=== PATIENT | male | born 1950 | race Caucasian/White ===

== ENCOUNTER 2017-11-24 11:15 | Outpatient (RCR) | payer MEDICARE, SELFPAY ==
--- NOTE | 2017-11-15 10:11 | PT.OIE ---
Current Diagnoses Pain in right knee (11/14/17) Stiffness of right knee, not elsewhere classified (11/14/17) Muscle weakness (generalized) (11/14/17) Pain in left foot (11/14/17) Past Medical History (Last Updated 11/15/17 @ 09:53 by Shazia Steiner, PT) Arthritis (Acute) Provider Visit Care Team Role Provider Type Irma Curran PA-C Attending Provider Advanced Migratory Worker Family Provider Primary Care Provider Specialty: Medical Address: [address] [place] [address], [facility] Email: [email or web address] Physical Therapy Initial Evaluation PT-OP-A Visit Information Start: 11/13/17 17:11 Freq: Status: Active Protocol: Document 11/14/17 10:36 LRN (Rec: 11/14/17 11:37 LRN [id number]) Out-Patient Physical Therapy Visit Information Visit Information Visit Type Initial Evaluation Visit Start Time 10:36 Visit Stop Time 11:24 Total Visit Minutes 48 Visit Number 1 Number of REGISTERED NURSE OBSTETRICS Visits 0 Evaluation Information Evaluation Date 11/14/17 PT-OP-B Current Condition Start: 11/13/17 17:11 Freq: Status: Active Protocol: Document 11/14/17 10:36 LRN (Rec: 11/14/17 11:37 LRN [id number]) Current Condition History of Current Condition History of Current Condition 1.5 months ago he was stretching into R knee ext and heard pop with pain, he denies having any bruising. The next day he couldn't put weight on the legs and had to use a cane for 2 weeks. He can now straighten the R knee now and swelling has gone down . No tests have been taken. Now the L foot has started hurting due to his limping. He has had previous physical therapy for a fx in the L foot ~ 1yr ago. He states his L foot around the lateral side of the heel and ankle. His gait is slightly limited on both LE's. Prior Treatments and Tests None Treatment Goals Patient/Caregiver Goals Pt goal is to be able to bike and exercise and to be painfree in the R knee and L foot. Walk without pain in the L foot. Prior Functional Status Baseline Function- ADL's Independent Baseline Function- Mobility Independent Baseline Function- Gait Gait without an assistive device and normal gait. 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 Baseline Function- Recreation/Hobbies Walking and bicycle riding. Current Functional Impairments (Reported) Functional Limitations- Mobility/Gait Antalgic gait. Functional Limitations- Work/School Has been unable to do volunteer work. Functional Limitations- Recreation/ Unable to walk or bicycle for Hobbies exercise. Personal Factors Other Personal Factors That May Effect Lives alone. Volunteers at Therapy[employer] at [facility], at [employer] for maintenance, and at the [employer] for garden work. Helps with errands for ex-boss. PT-OP-C Subjective Start: 11/13/17 17:11 Freq: Status: Active Protocol: Document 11/14/17 10:36 LRN (Rec: 11/15/17 09:30 LRN [id number]) Patient Questionnaires Lower Extremity Functional Scale LEFS Score 53 LEFS Impairment 20 to 39% Impaired (Score 48- 62) OP-PT Pain Assessment Pain Assessment Grid Paper Pain Assessment Grid Completed Yes Location Left Lateral Foot Pain Location Details 5/10: Lateral border of calcaneus inferior & slightly procurement services manager to the ankle. Scale Used Numeric (1 - 10) Right Lateral Knee Pain Location Details Lateral superior patellar facet Pain Duration Pain with palpation Right Medial Knee Pain Location Details 4/10 at Medial Quadriceps Scale Used Numeric (1 - 10) Description Aching Frequency Constant PT-OP-G Mobility & Gait Start: 11/13/17 17:11 Freq: Status: Active Protocol: Document 11/14/17 10:36 LRN (Rec: 11/14/17 11:37 LRN [id number]) OP Gait Assessment Gait Gait Assistance Required: Independent Gait Deviations General Gait Pattern Antalgic Comments Gait Comments Antalgic bilaterally. Longer step with R leg. Limps more off of L foot. Stairs leads going down with RLE. PT-OP-J Posture/Palpation/Skin Start: 11/13/17 17:11 Freq: Status: Active Protocol: Document 11/14/17 10:36 LRN (Rec: 11/15/17 09:30 LRN [id number]) Palpation Assessment Location Three Palpation Location L calcaneus lateral border Palpation Findings Tenderness Two Palpation Location R superolateral patellar facet Palpation Findings Tenderness One Palpation Location R medial quadriceps Palpation Findings Edema Tenderness PT-OP-K Range of Motion Start: 11/13/17 17:11 Freq: Status: Active Protocol: Document 11/14/17 10:36 LRN (Rec: 11/15/17 09:30 LRN [id number]) Knee Goniometric Range of Motion Knee Measured in Degrees Left Flexion Active (degrees) 140 Extension Active (degrees) 0 Right Patient Position Supine Flexion Active (degrees) 130 Extension Active (degrees) 0 PT-OP-M Strength Start: 11/13/17 17:11 Freq: Status: Active Protocol: Document 11/14/17 10:36 LRN (Rec: 11/15/17 09:30 LRN [id number]) Knee Strength Knee Manual Muscle Testing Left Flexion (S2) 5 Normal Extension (L3) 5 Normal Right Flexion (S2) 4 Good Extension (L3) 5 Normal Ankle/Foot Strength Ankle and Foot Manual Muscle Testing Right Comments WNL for all motions. Left Comments WNL for all motions. PT-OP-Q Treatments Start: 11/13/17 17:11 Freq: Status: Active Protocol: Document 11/14/17 10:36 LRN (Rec: 11/15/17 09:30 LRN [id number]) Self-Care/Home Management Treatment Education Patient Education Home Exercise Program Activities Self-Care/Home Management Activities Quad strengthening: Isometrics and SAQ (sit and supine. Active knee flexion: sit and supine. Handout issued. PT-OP-R Modalities Start: 11/13/17 17:11 Freq: Status: Active Protocol: Document 11/14/17 10:36 LRN (Rec: 11/15/17 09:30 LRN [id number]) Hot Pack/Cold Pack Treatment Cold Pack Location R knee, L heel/foot. Treatment Duration (minutes) 10 Patient Tolerance Good PT-OP-T Assessment and Plan Start: 11/13/17 17:11 Freq: Status: Active Protocol: Document 11/14/17 10:36 LRN (Rec: 11/14/17 11:37 LRN [id number]) Physical Therapy Assessment Evaluation Complexity Number of Personal Factors/Comorbidities 3 or More Number of Body Systems Impaired 4 or More Clinical Presentation at Evaluation Evolving Impairments Impairments Activity Tolerance Gait Pain ROM Strength Other Concerns Age Related Concerns Age 65+ Arthritis Lives alone Barriers to Rehabilitation Age 65+ Arthritis Goals Three Impairment Decreased R knee mobility Pastry Decorator Goal (LTG) Normalize R knee AROM for pt to tolerate return to bicycling for exercise. LTG Duration 01/15/18 Two Impairment Pain of R knee and L foot Short Term Goal (STG) Pt will be able to decrease pain with gait using an assistive device as needed to normalize gait pattern on the L LE. STG Duration 11/29/17 Shelter Goal (LTG) Decrease pain to allow pt to tolerate walking for exercise without use of an assistive device. LTG Duration 01/15/18 One Impairment Lacks appropriate self care/ HEP. Shelter Goal (LTG) Pt will be independent with a HEP LTG Duration 01/15/18 Assessment Summary Assessment Pt presents with signs of R Quadriceps weakness and R lateral patellar facet joint inflammation with pain limiting the pt's ability to exercise and participate in volunteer work. He also presents with L lateral foot pain from overuse due to an antalgic gait from his R sided knee pain. Inflammation and pain from persists due to the gait deviation. Physical Therapy Plan Frequency and Duration Frequency of Treatment 2x/Week Duration of Treatment 2 months Plan of Care Start Date 11/14/17 Plan of Care End Date 01/15/18 Therapeutic Interventions Therapeutic Interventions Aquatic Therapy Balance Training Coordination Training Gait Training Home Exercise Program Joint Mobilizations Manual Therapy Neuromuscular Re-education Patient/Caregiver Education Self-Care/Home Management Soft Tissue Mobilization Taping Therapeutic Exercises Modalities Cold Pack/Ice Massage Hot Packs Iontophoresis Ultrasound Other Therapeutic Interventions Iontophoresis with 4mg/mL Dexamethasone. Next Visit Focus/Plan Next Note Type Treatment Note Next Visit Plan Review HEP, Start CKC strengthening of R knee, possible K-tape to the L ankle /foot, end with US to the R Medial Quad and L lateral foot .
--- NOTE | 2017-11-16 15:04 | PT.OTN ---
Current Diagnoses Pain in right knee (11/16/17) Physical Therapy Treatment Note PT-OP-A Visit Information Start: 11/13/17 17:11 Freq: Status: Active Protocol: Document 11/16/17 08:15 LRN (Rec: 11/16/17 09:00 LRN [id number]) Out-Patient Physical Therapy Visit Information Visit Information Visit Type Treatment Note Visit Start Time 08:15 Visit Stop Time 09:05 Total Visit Minutes 50 Visit Number 2 Number of ROTARY CUTTER FEEDER Visits 0 Evaluation Information Evaluation Date 11/14/17 PT-OP-B Current Condition Start: 11/13/17 17:11 Freq: Status: Active Protocol: Document 11/14/17 10:36 LRN (Rec: 11/14/17 11:37 LRN [id number]) Current Condition History of Current Condition History of Current Condition 1.5 months ago he was stretching into R knee ext and heard pop with pain, he denies having any bruising. The next day he couldn't put weight on the legs and had to use a cane for 2 weeks. He can now straighten the R knee now and swelling has gone down . No tests have been taken. Now the L foot has started hurting due to his limping. He has had previous physical therapy for a fx in the L foot ~ 1yr ago. He states his L foot around the lateral side of the heel and ankle. His gait is slightly limited on both LE's. Prior Treatments and Tests None Treatment Goals Patient/Caregiver Goals Pt goal is to be able to bike and exercise and to be painfree in the R knee and L foot. Walk without pain in the L foot. Prior Functional Status Baseline Function- ADL's Independent Baseline Function- Mobility Independent Baseline Function- Gait Gait without an assistive device and normal gait. 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 Baseline Function- Recreation/Hobbies Walking and bicycle riding. Current Functional Impairments (Reported) Functional Limitations- Mobility/Gait Antalgic gait. Functional Limitations- Work/School Has been unable to do volunteer work. Functional Limitations- Recreation/ Unable to walk or bicycle for Hobbies exercise. Personal Factors Other Personal Factors That May Effect Lives alone. 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 Helps with errands for ex-boss. PT-OP-C Subjective Start: 11/13/17 17:11 Freq: Status: Active Protocol: Document 11/16/17 08:15 LRN (Rec: 11/16/17 09:00 LRN [id number]) OP-PT Subjective Patient Comments Patient Comments Pain was above the knee while doing the ex's. Evening aches the most. PT-OP-G Mobility & Gait Start: 11/13/17 17:11 Freq: Status: Active Protocol: Document 11/14/17 10:36 LRN (Rec: 11/14/17 11:37 LRN [id number]) OP Gait Assessment Gait Gait Assistance Required: Independent Gait Deviations General Gait Pattern Antalgic Comments Gait Comments Antalgic bilaterally. Longer step with R leg. Limps more off of L foot. Stairs leads going down with RLE. PT-OP-J Posture/Palpation/Skin Start: 11/13/17 17:11 Freq: Status: Active Protocol: Document 11/14/17 10:36 LRN (Rec: 11/15/17 09:30 LRN [id number]) Palpation Assessment Location Three Palpation Location L calcaneus lateral border Palpation Findings Tenderness Two Palpation Location R superolateral patellar facet Palpation Findings Tenderness One Palpation Location R medial quadriceps Palpation Findings Edema Tenderness PT-OP-K Range of Motion Start: 11/13/17 17:11 Freq: Status: Active Protocol: Document 11/16/17 08:15 LRN (Rec: 11/16/17 09:00 LRN [id number]) Knee Goniometric Range of Motion Knee Measured in Degrees Left Patient Position Supine Flexion Active (degrees) 140 Right Patient Position Supine Flexion Active (degrees) 145 PT-OP-M Strength Start: 11/13/17 17:11 Freq: Status: Active Protocol: Document 11/14/17 10:36 LRN (Rec: 11/15/17 09:30 LRN [id number]) Knee Strength Knee Manual Muscle Testing Left Flexion (S2) 5 Normal Extension (L3) 5 Normal Right Flexion (S2) 4 Good Extension (L3) 5 Normal Ankle/Foot Strength Ankle and Foot Manual Muscle Testing Right Comments WNL for all motions. Left Comments WNL for all motions. PT-OP-Q Treatments Start: 11/13/17 17:11 Freq: Status: Active Protocol: Document 11/16/17 08:15 LRN (Rec: 11/16/17 09:00 LRN [id number]) Therapeutic Exercises Supine Exercises 3 Supine Exercise Name Ankle IV/EV, PF/DF Side left Reps/Minutes 10 each 2 Supine Exercise Name SLR Side right Resistance 2# 1 Supine Exercise Name CKC R knee ext Resistance Lev 2 T-Band Reps/Minutes 15 PT-OP-R Modalities Start: 11/13/17 17:11 Freq: Status: Active Protocol: Document 11/16/17 08:15 LRN (Rec: 11/16/17 09:00 LRN [id number]) Hot Pack/Cold Pack Treatment Cold Pack Location R knee, L heel/foot. Treatment Duration (minutes) 10 Patient Tolerance Good Ultrasound Therapy Treatment Right Upper Medial Knee Treatment Duration (minutes) 8 Patient Position Supine Mode Setting Pulsed Duty Cycle 50% Intensity Setting (w/cm2) 1.0 Comments R Medial Quad PT-OP-T Assessment and Plan Start: 11/13/17 17:11 Freq: Status: Active Protocol: Document 11/16/17 08:15 LRN (Rec: 11/16/17 09:00 LRN [id number]) Physical Therapy Assessment Impairments Impairments Activity Tolerance Gait Pain ROM Strength Other Concerns Age Related Concerns Age 65+ Arthritis Lives alone Barriers to Rehabilitation Age 65+ Arthritis Goals Three Impairment Decreased R knee mobility Intermediate Goal (LTG) Normalize R knee AROM for pt to tolerate return to bicycling for exercise. LTG Duration 01/15/18 Two Impairment Pain of R knee and L foot Short Term Goal (STG) Pt will be able to decrease pain with gait using an assistive device as needed to normalize gait pattern on the L LE. STG Duration 11/29/17 Grain Shipper Goal (LTG) Decrease pain to allow pt to tolerate walking for exercise without use of an assistive device. LTG Duration 01/15/18 One Impairment Lacks appropriate self care/ HEP. Grain Shipper Goal (LTG) Pt will be independent with a HEP LTG Duration 01/15/18 Assessment Summary Assessment Full R knee AROM after US. Physical Therapy Plan Frequency and Duration Frequency of Treatment 2x/Week Duration of Treatment 2 months Plan of Care Start Date 11/14/17 Plan of Care End Date 01/15/18 Next Visit Focus/Plan Next Visit Plan ROM on Bike f/b A/PROM, Us to R knee and L lateral foot. Add open chain knee strengthening. K-tape to R knee/L foot.
--- NOTE | 2017-11-21 14:51 | PT.OTN ---
Current Diagnoses Pain in right knee (11/21/17) Physical Therapy Treatment Note PT-OP-A Visit Information Start: 11/13/17 17:11 Freq: Status: Active Protocol: Document 11/21/17 12:47 LRN (Rec: 11/21/17 13:33 LRN [id number]) Out-Patient Physical Therapy Visit Information Visit Information Visit Type Treatment Note Visit Start Time 12:47 Visit Stop Time 13:40 Total Visit Minutes 53 Visit Number 3 Number of FAIRGROUND OPERATOR Visits 0 Evaluation Information Evaluation Date 11/14/17 PT-OP-B Current Condition Start: 11/13/17 17:11 Freq: Status: Active Protocol: Document 11/14/17 10:36 LRN (Rec: 11/14/17 11:37 LRN [id number]) Current Condition History of Current Condition History of Current Condition 1.5 months ago he was stretching into R knee ext and heard pop with pain, he denies having any bruising. The next day he couldn't put weight on the legs and had to use a cane for 2 weeks. He can now straighten the R knee now and swelling has gone down . No tests have been taken. Now the L foot has started hurting due to his limping. He has had previous physical therapy for a fx in the L foot ~ 1yr ago. He states his L foot around the lateral side of the heel and ankle. His gait is slightly limited on both LE's. Prior Treatments and Tests None Treatment Goals Patient/Caregiver Goals Pt goal is to be able to bike and exercise and to be painfree in the R knee and L foot. Walk without pain in the L foot. Prior Functional Status Baseline Function- ADL's Independent Baseline Function- Mobility Independent Baseline Function- Gait Gait without an assistive device and normal gait. 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 Baseline Function- Recreation/Hobbies Walking and bicycle riding. Current Functional Impairments (Reported) Functional Limitations- Mobility/Gait Antalgic gait. Functional Limitations- Work/School Has been unable to do volunteer work. Functional Limitations- Recreation/ Unable to walk or bicycle for Hobbies exercise. Personal Factors Other Personal Factors That May Effect Lives alone. 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 Helps with errands for ex-boss. PT-OP-C Subjective Start: 11/13/17 17:11 Freq: Status: Active Protocol: Document 11/21/17 12:47 LRN (Rec: 11/21/17 13:33 LRN [id number]) OP-PT Subjective Patient Comments Patient Comments Ache in the R knee. Sometimes doesn't feel anything in the L foot. Walking without pain for 5 days. No problems with stairs except cautious. 99% NL R knee, 85% NL L foot. PT-OP-G Mobility & Gait Start: 11/13/17 17:11 Freq: Status: Active Protocol: Document 11/14/17 10:36 LRN (Rec: 11/14/17 11:37 LRN [id number]) OP Gait Assessment Gait Gait Assistance Required: Independent Gait Deviations General Gait Pattern Antalgic Comments Gait Comments Antalgic bilaterally. Longer step with R leg. Limps more off of L foot. Stairs leads going down with RLE. PT-OP-J Posture/Palpation/Skin Start: 11/13/17 17:11 Freq: Status: Active Protocol: Document 11/14/17 10:36 LRN (Rec: 11/15/17 09:30 LRN [id number]) Palpation Assessment Location Three Palpation Location L calcaneus lateral border Palpation Findings Tenderness Two Palpation Location R superolateral patellar facet Palpation Findings Tenderness One Palpation Location R medial quadriceps Palpation Findings Edema Tenderness PT-OP-K Range of Motion Start: 11/13/17 17:11 Freq: Status: Active Protocol: Document 11/21/17 12:47 LRN (Rec: 11/21/17 13:33 LRN [id number]) Knee Goniometric Range of Motion Knee Measured in Degrees Left Patient Position Supine Flexion Active (degrees) 145 Extension Active (degrees) 0 Right Knee ROM WFL Yes Patient Position Supine Flexion Active (degrees) 145 Extension Active (degrees) 0 Ankle and Foot Goniometric Range of Motion Ankle and Foot ROM Limitations ROM Limitations Soft Tissue Tightness Pain Comments L foot ankle PF and IV stiff. PT-OP-M Strength Start: 11/13/17 17:11 Freq: Status: Active Protocol: Document 11/14/17 10:36 LRN (Rec: 11/15/17 09:30 LRN [id number]) Knee Strength Knee Manual Muscle Testing Left Flexion (S2) 5 Normal Extension (L3) 5 Normal Right Flexion (S2) 4 Good Extension (L3) 5 Normal Ankle/Foot Strength Ankle and Foot Manual Muscle Testing Right Comments WNL for all motions. Left Comments WNL for all motions. PT-OP-Q Treatments Start: 11/13/17 17:11 Freq: Status: Active Protocol: Document 11/21/17 12:47 LRN (Rec: 11/21/17 13:33 LRN [id number]) Cardio Equipment Bicycle (Upright) Duration (Minutes) 8 Resistance Lev 4 Seat Position 3 Therapeutic Exercises Supine Exercises 3 Supine Exercise Name Ankle IV/EV, PF/DF Side left Resistance Lev 2 Equipment Used T-Band Reps/Minutes 15x2 each Standing Exercises 3 Standing Exercise Name Descending step leading Left Reps/Minutes 3' 2 Standing Exercise Name Step ups Side bilateral Reps/Minutes 15x2 1 Standing Exercise Name Sit to Stand Reps/Minutes 10x3 Manual Therapy Treatment Soft Tissue Mobilization 1 Body Location L ankle Mobilization Type Sustained Pressure Body Position Supine Comments Stretch PF/IV Self-Care/Home Management Treatment Activities Self-Care/Home Management Activities I/S pt to do step ups bilaterally, and L step downs, using T-Band for ankle ex's. PT-OP-R Modalities Start: 11/13/17 17:11 Freq: Status: Active Protocol: Document 11/21/17 12:47 LRN (Rec: 11/21/17 13:33 LRN [id number]) Hot Pack/Cold Pack Treatment Cold Pack Location R knee, L heel/foot. Treatment Duration (minutes) 10 Patient Tolerance Good PT-OP-T Assessment and Plan Start: 11/13/17 17:11 Freq: Status: Active Protocol: Document 11/21/17 12:47 LRN (Rec: 11/21/17 13:33 LRN [id number]) Physical Therapy Assessment Goals Three Impairment Decreased R knee mobility Envelope Folding Machine Operator Goal (LTG) Normalize R knee AROM for pt to tolerate return to bicycling for exercise. LTG Duration 11/21/17: GOAL MET. Two Impairment Pain of R knee and L foot Short Term Goal (STG) Pt will be able to decrease pain with gait using an assistive device as needed to normalize gait pattern on the L LE. STG Duration 11/21/17: GOAL MET. Care Home Goal (LTG) Decrease pain to allow pt to tolerate walking without pain. LTG Duration 01/15/18 One Impairment Lacks appropriate self care/ HEP. Care Home Goal (LTG) Pt will be independent with a HEP LTG Duration 01/15/18 Progress Towards Goals Progress Comments Goal #3 Met. STG #2 Met and LTG #3 modified. Assessment Summary Assessment Full R knee AROM without pain. Walking with L foot discomfort on stance and toe off phase. Not able to palpate tenderness at the knee or ankle; therefore held ultrasound. Physical Therapy Plan Frequency and Duration Frequency of Treatment 2x/Week Duration of Treatment 1 visit Plan of Care Start Date 11/14/17 Plan of Care End Date 01/15/18 Next Visit Focus/Plan Next Note Type Discharge Summary Next Visit Plan Reassess LEFS & Pain Grid, Gait. Issue HEP as needed. DC if pt ready.
--- NOTE | 2017-11-24 15:37 | PT.OTN ---
Current Diagnoses Pain in right knee (11/24/17) Physical Therapy Treatment Note PT-OP-A Visit Information Start: 11/13/17 17:11 Freq: Status: Active Protocol: Document 11/24/17 11:16 LRN (Rec: 11/24/17 12:50 LRN [id number]) Out-Patient Physical Therapy Visit Information Visit Information Visit Type Treatment Note Visit Start Time 11:16 Visit Stop Time 12:06 Total Visit Minutes 50 Visit Number 4 Number of BRAZER CRAWLER TORCH Visits 0 Evaluation Information Evaluation Date 11/14/17 PT-OP-B Current Condition Start: 11/13/17 17:11 Freq: Status: Active Protocol: Document 11/14/17 10:36 LRN (Rec: 11/14/17 11:37 LRN [id number]) Current Condition History of Current Condition History of Current Condition 1.5 months ago he was stretching into R knee ext and heard pop with pain, he denies having any bruising. The next day he couldn't put weight on the legs and had to use a cane for 2 weeks. He can now straighten the R knee now and swelling has gone down . No tests have been taken. Now the L foot has started hurting due to his limping. He has had previous physical therapy for a fx in the L foot ~ 1yr ago. He states his L foot around the lateral side of the heel and ankle. His gait is slightly limited on both LE's. Prior Treatments and Tests None Treatment Goals Patient/Caregiver Goals Pt goal is to be able to bike and exercise and to be painfree in the R knee and L foot. Walk without pain in the L foot. Prior Functional Status Baseline Function- ADL's Independent Baseline Function- Mobility Independent Baseline Function- Gait Gait without an assistive device and normal gait. 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 Baseline Function- Recreation/Hobbies Walking and bicycle riding. Current Functional Impairments (Reported) Functional Limitations- Mobility/Gait Antalgic gait. Functional Limitations- Work/School Has been unable to do volunteer work. Functional Limitations- Recreation/ Unable to walk or bicycle for Hobbies exercise. Personal Factors Other Personal Factors That May Effect Lives alone. 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 Helps with errands for ex-boss. PT-OP-C Subjective Start: 11/13/17 17:11 Freq: Status: Active Protocol: Document 11/24/17 11:16 LRN (Rec: 11/24/17 12:50 LRN [id number]) OP-PT Subjective Patient Comments Patient Comments No R knee pain. Only slight L ankle with deep palpation. R knee feels a little weak. Patient Questionnaires Lower Extremity Functional Scale LEFS Score 70 LEFS Impairment 1 to 19% Impaired (Score 63-79 ) OP-PT Pain Assessment Pain Assessment Grid Paper Pain Assessment Grid Completed Yes Location Left Lateral Foot Pain Location Details Inferior to lateral ankle joint Intensity 2 Scale Used Numeric (1 - 10) Description- Other Only aches during a lot of stair ambulation. Ache stops when done. Right Lateral Knee Pain Location Details Lateral superior patellar facet Intensity 0 Description- Other Weakness, no pain. Right Medial Knee Pain Location Details Medial Quadriceps Intensity 0 Description- Other Weakness, no pain. PT-OP-G Mobility & Gait Start: 11/13/17 17:11 Freq: Status: Active Protocol: Document 11/24/17 11:16 LRN (Rec: 11/24/17 12:50 LRN [id number]) OP Gait Assessment Gait Deviations General Gait Pattern Within Normal Limits Comments Gait Comments Normal gait on level and stairs. PT-OP-J Posture/Palpation/Skin Start: 11/13/17 17:11 Freq: Status: Active Protocol: Document 11/24/17 11:16 LRN (Rec: 11/24/17 12:50 LRN [id number]) Posture Evaluation Comments Posture Comments Normal. Palpation Assessment Location Three Palpation Location L calcaneus lateral border Palpation Details No tenderness. Area of tenderness with activity or deep pressure is inferior to the lateral ankle joint. Two Palpation Location R superolateral patellar facet Palpation Details No tenderness One Palpation Location R medial quadriceps Palpation Details No tenderness PT-OP-K Range of Motion Start: 11/13/17 17:11 Freq: Status: Active Protocol: Document 11/24/17 11:16 LRN (Rec: 11/24/17 12:50 LRN [id number]) Knee Goniometric Range of Motion Knee Measured in Degrees Left Knee ROM WFL Yes Right Knee ROM WFL Yes Ankle and Foot Goniometric Range of Motion Ankle and Foot ROM Limitations Comments L foot ankle PF and IV stiff. PT-OP-M Strength Start: 11/13/17 17:11 Freq: Status: Active Protocol: Document 11/24/17 11:16 LRN (Rec: 11/24/17 12:50 LRN [id number]) Knee Strength Knee Manual Muscle Testing Right Flexion (S2) 5 Normal Extension (L3) 5 Normal Ankle/Foot Strength Ankle and Foot Manual Muscle Testing Right Comments Normal strength PT-OP-Q Treatments Start: 11/13/17 17:11 Freq: Status: Active Protocol: Document 11/24/17 11:16 LRN (Rec: 11/24/17 12:50 LRN [id number]) Cardio Equipment Bicycle (Upright) Duration (Minutes) 8 Resistance Lev 4 Seat Position 3 Gym Equipment Shuttle Recovery Bilateral Heel Raises Resistance 50# Shuttle Recovery Platform Stable Reps/Time 10x3 Bilateral Squats Resistance 75# Shuttle Recovery Platform Stable Reps/Time 10x3 Unilateral Squats Resistance 50# Shuttle Recovery Platform Stable Reps/Time 15x1 Therapeutic Exercises Supine Exercises 4 Supine Exercise Name R knee AROM/ARROM Comments ROM & strength check 3 Supine Exercise Name Ankle IV/EV, PF/DF Side left Comments ROM and strength check Standing Exercises 3 Standing Exercise Name Descending step leading Left Comments Normal gait. Self-Care/Home Management Treatment Education Patient Education Home Exercise Program Activities Self-Care/Home Management Activities Reiviewed and updated pt's HEP with written instructions given on existing HEP. PT-OP-R Modalities Start: 11/13/17 17:11 Freq: Status: Active Protocol: Document 11/24/17 11:16 LRN (Rec: 11/24/17 12:50 LRN [id number]) Hot Pack/Cold Pack Treatment Cold Pack Location R knee, L heel/foot. Treatment Duration (minutes) 10 Patient Tolerance Good Ultrasound Therapy Treatment Left Lateral Ankle Treatment Duration (minutes) 8 Patient Position Supine Coupling Medium Ultrasound Gel Applicator Size (cm2) 2 Frequency Setting (mHz) 1 Mode Setting Pulsed Duty Cycle 50% Intensity Setting (w/cm2) 1.0 Comments Around anterior, inferior, posterior L distal fibula at the lateral malleolus. PT-OP-T Assessment and Plan Start: 11/13/17 17:11 Freq: Status: Active Protocol: Document 11/24/17 11:16 LRN (Rec: 11/24/17 12:50 LRN [id number]) Physical Therapy Assessment Impairments Impairments Strength Goals Three Impairment Decreased R knee mobility Promotions Director Goal (LTG) Normalize R knee AROM for pt to tolerate return to bicycling for exercise. LTG Duration 11/21/17: GOAL MET. Two Impairment Pain of R knee and L foot Short Term Goal (STG) Pt will be able to decrease pain with gait using an assistive device as needed to normalize gait pattern on the L LE. STG Duration 11/21/17: GOAL MET. Promotions Director Goal (LTG) Decrease pain to allow pt to tolerate walking without pain. LTG Duration 11/24/17: GOAL MET. One Impairment Lacks appropriate self care/ HEP. Promotions Director Goal (LTG) Pt will be independent with a HEP LTG Duration 11/24/17: GOAL MET. Progress Towards Goals Progress Comments Goals Met. Assessment Summary Assessment Full R knee AROM without pain. No R knee or L foot pain with gait. Mild ache in L foot with 2 flights of stairs. Physical Therapy Plan Next Visit Focus/Plan Next Visit Plan DC to independent HEP.
== END 2017-12-06 08:49 ==
LOC: PHYS 11:15
PROVIDERS: Family Provider Physician Assistant; PCP Physician Assistant; Visit Provider Physician Assistant
DX: M25.561 Pain in right knee (principal)
CPT/HCPCS: 97010; 97035; 97110; 97161; 97535

== ENCOUNTER → 2019-11-12 12:52 | Outpatient (CLI) | payer MEDICARE, SELFPAY ==
--- NOTE | 2019-11-12 12:55 | DI.RAD.S_ITS ---
PROCEDURE: XR FINGER LT MIN 2V INDICATIONS: l thumb pain TECHNIQUE: AP hand, 2 views of the thumb were obtained. COMPARISON: None. FINDINGS: Bones: No fractures or dislocations. No suspicious bony lesions. Yikx-vy-eeyksgal degenerative changes are present involving the basal joints of the thumb. Soft tissues: No suspicious soft tissue calcifications. IMPRESSION: [id number] degenerative changes involving the basal joint of the thumb. No fractures. Dictated by: Julio Chin M.D. on 11/12/2019 at 12:50 Approved by: Julio Chin M.D. on 11/12/2019 at 12:53
== END ==
PROVIDERS: Family Provider Physician Assistant; PCP Physician Assistant; Referring Provider Physician Assistant; Visit Provider Physician Assistant
DX: M79.645 Pain in left finger(s) (principal)
CPT/HCPCS: 73140

== ENCOUNTER 2019-11-13 10:46 | Emergency (ER) | payer MEDICARE, SELFPAY | END 2019-11-13 10:58 | disposition left against medical advice (07) | PROVIDERS: Emergency Provider Emergency Medicine; Family Provider Physician Assistant; PCP Physician Assistant ==

== ENCOUNTER → 2019-11-13 16:02 | Outpatient (CLI) | payer MEDICARE, SELFPAY ==
--- NOTE | 2019-11-13 16:05 | DI.MRI.S_ITS ---
PROCEDURE: MR HAND LT WO CON INDICATIONS: left thumb injury TECHNIQUE: Noncontrast oblique coronal T1 spin echo and T2 fast spin echo with fat saturation, axial and sagittal T2 fast spin echo with fat saturation, through the thumb. COMPARISON: [facility], CR, XR FINGER LT MIN 2V, 11/12/2019, 12:50. FINDINGS: Image quality: Excellent. Bones: The bones are normally aligned, without marrow contusions or fractures. No intra-osseous lesions. First carpometacarpal joint: On sagittal images, the dorsal radial ligament and posterior oblique ligament appear intact. The intermetacarpal ligament between the 1st and 2nd metacarpal bases also appears intact. On the volar aspect, the deep and superficial layers of the anterior oblique ligament appear intact. First metacarpophalangeal joint: The proper and accessory components of the radial collateral ligament appears intact, along with overlying fibers of the abductor pollicis brevis tendon. The proper and accessory components of the ulnar collateral ligaments appear Thickened at its distal insertion suggestive of sprain/ low to moderate grade partial thickness tear. The aponeurosis of the adductor pollicis muscle also appears normal. The volar plate appears intact on sagittal images, situated between the radial and ulnar sesamoids. Thenar muscles: The superficial abductor pollicis longus muscle appears normal, with tendon inserting on the radial base of the first proximal phalanx. The opponens pollicis muscle also appears normal, inserting on the first metacarpal shaft. The flexor pollicis brevis muscle appears normal, with tendon inserting on the radial sesamoid and first proximal phalanx. The oblique and transverse heads of the adductor pollicis muscle appear normal, inserting on the ulnar sesamoid and proximal phalanx as part of the adductor aponeurosis. Flexor pollicis longus tendon: Thickening of the flexor pollicis longus tendon seen at the level of 1st MCP joint with surrounding soft tissue edema and intrasubstance fluid signal. There is suggestion of ruptured A1 peter. Extensor tendons: The extensor pollicis brevis tendon appears intact, coursing radial to the extensor pollicis longus tendon and inserting on the dorsal base of the proximal phalanx, blending with the dorsal plate of the first MCP joint. The extensor pollicis longus tendon appears intact as it inserts on the dorsal base of the distal phalanx. The sagittal band at the level of the first MCP joint appears intact. The abductor pollicis longus tendon slips appear intact at the radial aspect of the proximal phalanx, proximal to the abductor pollicis brevis tendon insertion. Miscellaneous: No ganglion cysts. IMPRESSION: 1. Suggestion of ruptured A1 peter with tendinosis and low-grade intrasubstance partial-thickness tear involving flexor pollicis longus tendon at the level of 1st MCP joint. 2. sprain/ low to moderate grade partial thickness tear involving distal ulnar collateral ligament of the 1st MTP joint. 3. No fracture or dislocation. Dictated by: Dusty Rehman M.D. on 11/13/2019 at 18:11 Approved by: Dusty Rehman M.D. on 11/13/2019 at 18:19
== END ==
PROVIDERS: Family Provider Physician Assistant; PCP Physician Assistant; Referring Provider Registered Nurse; Visit Provider Registered Nurse
DX: M79.645 Pain in left finger(s) (principal); S53.32XA Traumatic rupture of left ulnar collateral ligament, initial encounter; X58.XXXA Exposure to other specified factors, initial encounter
CPT/HCPCS: 73218

== ENCOUNTER → 2021-06-07 10:33 | Outpatient (CLI) | payer MEDICARE, SELFPAY ==
[2021-06-07 12:07] LABS: COVID19 -Nasal RAPID Negative (Negative)
== END ==
PROVIDERS: PCP Registered Nurse; Visit Provider Family Medicine Sleep Medicine
DX: Z20.822 Contact with and (suspected) exposure to COVID-19 (principal)
CPT/HCPCS: 87635; C9803

== ENCOUNTER 2021-06-08 07:36 | Day surgery (SDC) | payer MEDICARE, SELFPAY ==
[2021-06-08 09:05] VITALS: BP 137/79; PULSE 81; RESP 18; TEMP 36.5; O2SAT 99; BMI 22.4
[2021-06-08] MEDS: CATARACT EYE COMPOUND (10 DROPS/SYRINGE) 3 DROPS EYE-OP (09:05)
[2021-06-08] MEDS: PROPARACAINE 0.5% OPHTH SOL 2 DROPS EYE-OP (09:05)
--- NOTE | 2021-06-08 09:49 | P.OP.PRE_ITS ---
Pre-operative Note Interval Note History & Physical reviewed/Exam performed by Physician: Yes Changes to H&P: No Addendum Addendum Note: There are no non surgical alternatives to the patient's condition. Deteriora tion of the patient's condition is expected. Delay may result in more complex future surgery.
--- NOTE | 2021-06-08 09:50 | P.OP_ITS ---
Operative Date/Time/Diagnoses Pre-op diagnosis: Nuclear cataract right eye Procedure & Clinicians Procedure: Cataract Surgery Same procedure as scheduled: Yes Surgeon: Attila Velazquez Anesthesia Type: MAC +/- and Sedation Operative Notes Procedure in detail: Patient brought to the operating suite. Tetracaine drops placed in the right eye. Marking instrument was used to wiley the vertical and horizontal meridians. Patient was prepped and draped in sterile manner. Wire lid speculum was placed in the eye. Betadine drops were placed on the eye. This was irrigated. Lidocaine jelly was placed on the eye. A paracentesis port was created with a side-port blade. 0.1 mL 1% preservative free lidocaine was injected into the anterior chamber. The anterior chamber was deepened with viscoelastic. 2.6 mm keratome was used to create a temporal clear corneal incision. Cystotome and Utrata forceps were used to create continuous tear capsulorrhexis. Balanced salt solution was used to hydro dissect the nucleus. The phacoemulsification handpiece was inserted and the nucleus was removed using the stop and chop technique. The irrigation aspiration handpiece was inserted and the remaining cortex was removed. Anterior chamber was deepened with viscoelastic. An Hopkins [id number] intraocular lens with a power of 20.5 was injected into the capsular bag. Irrigation aspiration handpiece was inserted and the remaining viscoelastic was removed. The lens was rotated to the 180 degree meridian. Incision was hydrated with balanced salt solution and found to be leak free with pressure with Weck- Grace sponges. 0.1 mL Vigamox injected anterior chamber. 0.3 mL Kenalog 10 mg was injected subconjunctivally. Lid speculum was removed. The patient left the operating room in excellent condition. Complications: none Post-operative Condition: stable Disposition: same day surgery
[2021-06-08] MEDS: PHENYLEPHRINE/LIDOCAINE VIAL (OR) 0.2 ML EYE-OP (10:03)
[2021-06-08] MEDS: HYALURONATE SODIUM 30 MG-10 MG/ML SYRINGES 1 BOX INTRAOCULA (10:03)
[2021-06-08] MEDS: MOXIFLOXACIN INJ 4 MG/0.8 ML VIAL 0.5 MG EYE-OP (10:03)
[2021-06-08] MEDS: TRIAMCINOLONE 50 MG/5 ML VIAL INJ (10:03)
[2021-06-08] MEDS: TETRACAINE 0.5% OPHTH DROPS 4 ML 2 DROPS EYE-OP (10:04)
[2021-06-08] MEDS: LIDOCAINE 2% (GLYDO) 6 ML GEL TOP (10:04)
[2021-06-08] MEDS: BALANCED SALT IRRIG SOLN NO.2 500 ML, EPINEPHrine 1 MG IRR (10:04)
[2021-06-08 10:23] VITALS: BP 122/77; PULSE 75; RESP 16; TEMP 36.7; O2SAT 99
== END 2021-06-08 10:39 | disposition home or self-care (01) ==
PROVIDERS: PCP Registered Nurse; Referring Provider Ophthalmology; Visit Provider Ophthalmology
PROC: (CPT 66984; principal; 2021-06-08 09:45)
DX: H25.11 Age-related nuclear cataract, right eye (principal)
CPT/HCPCS: 66984; J0171; J2250; J3301; V2787

== ENCOUNTER → 2022-11-08 10:16 | Outpatient (CLI) | payer MEDICARE, SELFPAY ==
--- NOTE | 2022-11-08 10:17 | DI.RAD.S_ITS ---
PROCEDURE: XR CHEST 2V INDICATIONS: 6 mo intermittent persistent cough TECHNIQUE: 2 views of the chest were acquired. COMPARISON: None. FINDINGS: Surgical changes and devices: None. Lungs and pleura: Lungs are mildly hyperinflated and clear. No pleural effusions or pneumothorax. Mediastinum: Mediastinal contours are normal. Heart size is normal. Bones and chest wall: No suspicious bony abnormalities. Incidental note of mild midthoracic compression fracture, presumably chronic. Small left humeral neck enchondroma. Soft tissues appear unremarkable. IMPRESSION: 1. No acute cardiopulmonary disease. 2. Mild hyperinflation may indicate chronic reactive airways disease/emphysema. Dictated by: Julia Minor M.D. on 11/08/2022 at 9:44 Approved by: Julia Minor M.D. on 11/08/2022 at 9:45
== END ==
PROVIDERS: Referring Provider Student in an Organized Health Care Education/Training Program; Visit Provider Student in an Organized Health Care Education/Training Program
DX: R05.8 Other specified cough (principal)
CPT/HCPCS: 71046

== ENCOUNTER 2023-06-30 11:33 | Emergency (ER) | payer OTHER, SELFPAY ==
[2023-06-30 11:37] VITALS: BP 169/89; PULSE 76; RESP 18; TEMP 36.6; O2SAT 99; BMI 24.0
--- NOTE | 2023-06-30 11:58 | ED_ITS ---
<Statement entered by Delmer Guy MD - 06/30/23 21:40> I was available for consultation for this patient while they were in the ER but not consulted. My review of this note is my first interaction with this patient's chart. HPI - Eye Problem General Chief complaint: Eye Problems Stated complaint: rt eye problem Time Seen by Provider: 06/30/23 11:52 Source: patient Mode of arrival: Ambulatory History of Present Illness HPI Narrative: This is a 73-year-old male presents to the emergency department complaining of bilateral eye irritation. States that yesterday began as a stye which ?opened up? causing some irritation to his right eye. This morning it as spread to his left eye. States mild irritation but no significant pain. No vision changes. No pain with extraocular movement. Denies any fevers or any other concerning signs or symptoms. States that there has been some purulent drainage from bilateral eyes. Related Data Home Medications Medication Instructions Recorded Confirmed witch gordy 50 % topical pads 1 ea TP QDAY ##0 12/15/15 11/08/22 (Tucks (witch gordy)) acetaminophen 500 mg tablet 500 mg PO Q6H PRN Pain (Scale 10/02/17 11/08/22 (Tylenol Extra Strength) Score 4-6) atorvastatin 10 mg tablet 10 mg PO DAILY 10/02/17 11/08/22 latanoprost 0.005 % eye drops 1 drop EYE-BOTH DAILY 11/13/19 11/08/22 multivitamin (Daily Multi-Vitamin 1 tab PO DAILY 11/13/19 11/08/22 tablet) psyllium 1 tbsp PO DAILY 11/13/19 11/08/22 atorvastatin 20 mg tablet 20 mg PO BEDTIME 06/08/23 06/08/23 mometasone 100 mcg/actuation HFA 1 puff inhalation BID 06/08/23 06/08/23 aerosol inhaler (Asmanex HFA) Previous Rx's Medication Instructions Recorded Disabled Parking Permit ea ##1 09/29/16 benzonatate 100 mg capsule 100 mg PO TID PRN cough #30 caps 11/08/22 albuterol sulfate 90 mcg/actuation 2 puff inhalation Q6H PRN 06/12/23 aerosol inhaler shortness of breath or wheezing #6.7 grams inhalational spacing device #1 ea 06/12/23 (Flexichamber spacer) polymyxin B sulfate 10,000 1 drp EYE-BOTH Q3H 7 days #10 mL 06/30/23 unit-trimethoprim 1 mg/mL eye drops polymyxin B sulfate 10,000 1 drp EYE-BOTH Q3H 7 days #10 mL 06/30/23 unit-trimethoprim 1 mg/mL eye drops Allergies Allergy/AdvReac Type Severity Reaction Status Date / Time NSAIDS (Non-Steroidal AdvReac GI bleed Verified 06/08/23 09:07 Anti-Inflamma Review of Systems Review of Systems Narrative: GENERAL: Denies chills, fatigue, malaise, fever, sweats. HEENT: Reports eye irritation and purulent drainage bilaterally, Denies sinus pain, ear pain, sore throat, difficulty swallowing, dizziness. RESPIRATORY: Denies dyspnea, cough, wheezing, hemoptysis, sputum. CARDIOVASCULAR: Denies chest pain, palpitations, orthopnea, edema, GASTROINTESTINAL: Denies nausea, vomiting, abdominal pain, diarrhea, constipation, melena. : Denies dysuria, frequency, incontinence, hematuria, urinary retention. MUSCULOSKELETAL: denies weakness, joint pain, or bony pain SKIN: Denies rash, skin lesions, or other NEUROLOGIC: Denies weakness, headache, numbness, change in speech, confusion, seizures, incoordination. PSYCHIATRIC: No concerning psychosocial issues. 12 point review of systems is negative except for those stated above Patient History Medical History (Updated 06/30/23 @ 12:13 by Juan Carlos Ulloa PA-C) Injury of tendon of thumb Arthritis Left foot pain History of renal calculi (12/11/14) Social History household members: none Smoking Status: Never smoker alcohol intake: current Smoking Status: Never smoker alcohol intake frequency: a few times a week Substance Use Type: does not use Exam Narrative Exam Narrative: GENERAL: Well-developed patient, in mild distress. HEAD: Atraumatic. Normocephalic. EYES: Pupils equal round and reactive. Extraocular motions intact. Erythematous bilateral eyes conjunctiva with evidence of dried purulent drainage. ENT: Nose without bleeding, purulent drainage. Throat without erythema, tonsillar hypertrophy or exudate. Airway patent. NECK: Trachea midline. Non tender EXTREMITIES: No edema or joint tenderness. NEURO: AOx3. SKIN: No rash or erythema of visible areas Initial Vital Signs Initial Vital Signs: Vital Signs Temperature 97.8 F 06/30/23 11:37 Pulse Rate 76 06/30/23 11:37 Respiratory Rate 18 06/30/23 11:37 Blood Pressure 169/89 H 06/30/23 11:37 Pulse Oximetry 99 06/30/23 11:37 Oxygen Delivery Method Room Air 06/30/23 11:37 Course Vital Signs Vital signs: Vital Signs - 8 hr 06/30/23 11:37 06/30/23 12:20 Temperature 97.8 F 98.1 F Pulse Rate 76 71 Respiratory Rate 18 18 Blood Pressure 169/89 H 175/86 H Pulse Oximetry 99 100 Oxygen Delivery Method Room Air Room Air MDM - Eye Problem MDM Narrative Medical decision making narrative: ED course: This is a 73-year-old male presents to the emergency department due to suspected bacterial conjunctivitis bilaterally. No pain with extraocular movement or periorbital edema and low concern for any kind of septal or preseptal cellulitis. No significant pain concerning for any kind of acute closed angle glaucoma. We will treat with topical antibiotic drops. CC: Eye irritation Complicating co-morbidities: Glaucoma Data collected from: Previous notes Medical records reviewed: Patient was seen in the walk-in clinic proximally 8 months ago. Has a chronic cough. No other pertinent medical history. Differential considered, but not limited to: Viral conjunctivitis, bacterial conjunctivitis, preseptal cellulitis, septal cellulitis Exam documented above, pertinent findings include: Bilateral erythema to the conjunctiva as well as some scant dried purulent drainage. Lab Test results independently reviewed as above. Pertinent findings: None Imaging studies independently reviewed: None Scores Used: None MIPS Elements: None Consultations: None Treatments: None Re-evaluations: None Discussion: Discussed plan with the patient was comfortable with the plan Diagnosis: Bacterial conjunctivitis Disposition: see below, along with detailed discharge instructions that have been reviewed with patient as well as indications for ED re-evaluation and additional outpatient follow up Discharge Plan Departure Patient Disposition: Home Clinical Impression: Acute bacterial conjunctivitis Instructions: DI for Conjunctivitis Activity Restrictions/Additional Instructions: Thank you for coming to the [facility] Emergency Department today. Please use the antibiotic eyedrops as prescribed. [facility] in [place]. Please return to the emergency department if you develop any significant new or worsening pain, vision changes, or any other concerning signs or symptoms. I hope you feel better soon. Please follow up with your primary care provider within a week if your symptoms continue. If you do not have a primary care provider please contact the [facility] Resource line at [phone]. They will ask some questions about your medical history and help you get set up with a provider in the community. Prescriptions: New polymyxin B sulf-trimethoprim 10,000 unit- 1 mg/mL drops 1 drp EYE-BOTH Q3H 7 Days Qty: 10 0RF polymyxin B sulf-trimethoprim 10,000 unit- 1 mg/mL drops 1 drp EYE-BOTH Q3H 7 Days Qty: 10 0RF No Action acetaminophen [Tylenol Extra Strength] 500 mg tablet 500 mg PO Q6H PRN (Reason: Pain (Scale Score 4-6)) atorvastatin 10 mg tablet 10 mg PO DAILY benzonatate 100 mg capsule 100 mg PO TID PRN (Reason: cough) Qty: 30 2RF atorvastatin 20 mg tablet 20 mg PO BEDTIME Asmanex HFA 100 mcg/actuation HFA aerosol inhaler 1 puff inhalation BID Tucks (witch gordy) 1 EACH pads, medicated 1 ea TP QDAY Qty: 0 Disabled Parking Permit Qty: 1 0RF (DME) Flexichamber Spacer See Rx Instructions .Route Qty: 1 0RF Rx Instructions: As directed albuterol sulfate 90 mcg/actuation HFA aerosol inhaler 2 puff inhalation Q6H PRN (Reason: shortness of breath or wheezing) Qty: 6.7 5RF multivitamin [Daily Multi-Vitamin] Tablet 1 tab PO DAILY psyllium Powder 1 tbsp PO DAILY Rx Instructions: mix into at least 8 oz of water or juice before administering latanoprost 0.005 % drops 1 drop EYE-BOTH DAILY Referrals: Lance Hughes MD [Primary Care Provider] - Stand Alone Forms: Patient Portal/API
[2023-06-30 12:20] VITALS: BP 175/86; PULSE 71; RESP 18; TEMP 36.7; O2SAT 100
== END 2023-06-30 12:23 | disposition home or self-care (01) ==
PROVIDERS: Emergency Provider Physician Assistant Medical; PCP Family Medicine
DX: H10.33 Unspecified acute conjunctivitis, bilateral (principal)
CPT/HCPCS: 99281

== ENCOUNTER 2023-10-19 10:04 | Emergency (ER) | payer OTHER, MEDICARE, SELFPAY ==
[2023-10-19 10:08] VITALS: BP 149/71; PULSE 79; RESP 14; TEMP 36.5; O2SAT 99; BMI 21.9
--- NOTE | 2023-10-19 11:21 | ED.RECABL ---
HPI - Recheck/Abnormal Lab/Rx General Chief Complaint: Recheck/Abnormal Lab/Rx Stated Complaint: Excess hemorroid bleeding Time Seen by Provider: 10/19/23 11:18 Source: patient Mode of arrival: Ambulatory History of Present Illness HPI narrative: 73-year-old male with history of hypertension, hemorrhoids and rectal bleeding presents for evaluation of improving rectal bleeding with bowel movements. He states that for the past few months he had rectal pain and fullness consistent with hemorrhoids. He is actually scheduled for an appointment with Dr. Kiser with General surgery for evaluation of hemorrhoids and a colonoscopy next month. He states that for the past few days he has had increased bleeding with bowel movements only but a complete resolution of pain. He denies any systemic complaints such as dizziness, weakness or lightheadedness. He has no nausea, vomiting or diarrhea. No abdominal pain or issues with urination. He takes no blood thinners. Related Data Home Medications Medication Instructions Recorded Confirmed witch gordy 50 % topical pads 1 ea TP QDAY ##0 12/15/15 10/02/23 (Angela (witch gordy)) acetaminophen 500 mg tablet 500 mg PO Q6H PRN Pain (Scale 10/02/17 10/02/23 (Tylenol Extra Strength) Score 4-6) atorvastatin 10 mg tablet 10 mg PO DAILY 10/02/17 10/02/23 latanoprost 0.005 % eye drops 1 drop EYE-BOTH DAILY 11/13/19 10/02/23 multivitamin (Daily Multi-Vitamin 1 tab PO DAILY 11/13/19 10/02/23 tablet) psyllium 1 tbsp PO DAILY 11/13/19 10/02/23 atorvastatin 20 mg tablet 20 mg PO BEDTIME 06/08/23 10/02/23 mometasone 100 mcg/actuation HFA 1 puff inhalation BID 06/08/23 10/02/23 aerosol inhaler (Asmanex HFA) Previous Rx's Medication Instructions Recorded Disabled Parking Permit ea ##1 09/29/16 benzonatate 100 mg capsule 100 mg PO TID PRN cough #30 caps 11/08/22 albuterol sulfate 90 mcg/actuation 2 puff inhalation Q6H PRN 06/12/23 aerosol inhaler shortness of breath or wheezing #6.7 grams inhalational spacing device #1 ea 06/12/23 (Flexichamber spacer) amlodipine 2.5 mg tablet 2.5 mg PO DAILY #30 tabs 07/06/23 sodium,potassium,mag sulfates 17.5 See Rx Instructions PO .COMPLEX 10/02/23 gram-3.13 gram-1.6 gram oral soln #354 mL (Suprep Bowel Prep Kit) Allergies Allergy/AdvReac Type Severity Reaction Status Date / Time NSAIDS (Non-Steroidal AdvReac GI bleed Verified 10/19/23 10:08 Anti-Inflamma Review of Systems Review of Systems Narrative: GENERAL: See HPI HEENT: Denies sinus pain, ear pain, sore throat, difficulty swallowing, dizziness. RESPIRATORY: Denies dyspnea, cough, wheezing, hemoptysis, sputum. CARDIOVASCULAR: Denies chest pain, palpitations, orthopnea, edema, GASTROINTESTINAL: See HPI : Denies dysuria, frequency, incontinence, hematuria, urinary retention. MUSCULOSKELETAL: denies weakness, joint pain, or bony pain SKIN: Denies rash, skin lesions, or other NEUROLOGIC: Denies weakness, headache, numbness, change in speech, confusion, seizures, incoordination. PSYCHIATRIC: No concerning psychosocial issues. 12 point review of systems is negative except for those stated above Patient History Medical History Injury of tendon of thumb Arthritis Left foot pain History of renal calculi (12/11/14) Social History household members: none Smoking Status: Never smoker alcohol intake: current Smoking Status: Never smoker alcohol intake frequency: a few times a week Substance Use Type: does not use Exam Narrative Exam Narrative: GEN: AOx3 and in mild distress EYES: Pupils are equal, round, and reactive to light and accommodation. Extraoccular muscles are intact bilaterally. There is no subconjunctival hemorrhage or exudate. CHEST: Lungs are clear to auscultation bilaterally and free of wheezes, rales, or rhonchi. Heart rate is regular rhythm, there are no murmurs, clicks, rubs, or gallops. There is no chest wall tenderness. ABD: Abdomen is soft and nontender. There is no guarding or rebound. Bowel sounds are normal in all 4 quadrants. There is no mass or organomegaly. RECTAL: No current bleeding, evidence of prior likely thrombosed hemorrhoid, no ongoing pain, no fissure, no internal hemorrhoid palpated, heme-negative EXT: Full painless ROM of all extremities with no loss of sensation or strength. SKIN: Warm, pink, and dry. No erythema or rash Initial Vital Signs Initial Vital Signs: Vital Signs Temperature 97.7 F 10/19/23 10:08 Pulse Rate 79 10/19/23 10:08 Respiratory Rate 14 10/19/23 10:08 Blood Pressure 149/71 H 10/19/23 10:08 Pulse Oximetry 99 10/19/23 10:08 Oxygen Delivery Method Room Air 10/19/23 10:08 Course Vital Signs Vital signs: Vital Signs - 8 hr 10/19/23 10:08 Temperature 97.7 F Pulse Rate 79 Respiratory Rate 14 Blood Pressure 149/71 H Pulse Oximetry 99 Oxygen Delivery Method Room Air MDM - Recheck/Abnormal Lab/Rx MDM Narrative Medical decision making narrative: [73] year old patient presents with improving rectal bleeding over the past few days and resolution of rectal pain Multiple etiologies for patient's symptoms considered including, but not limited to: [Ruptured hemorrhoid versus diverticulosis versus diverticulitis versus other] Prior Charts reviewed in our EMR Primary Historian: patient Labs considered but not indicated given lack of ongoing bleeding or other symptoms, particularly no dizziness, weakness or lightheadedness, no fever or chills, no abdominal pain and no use of blood thinners Imaging not indicated Patient with reassuring history and physical exam and resolution rectal pain and bleeding. Most consistent with a hemorrhoid that had ruptured and has since resolved. He has upcoming appointment with General surgery to evaluate this and received colonoscopy. As noted above no indication for labs or further workup at this time. Return precautions discussed and questions answered to his apparent satisfaction Findings and discharge diagnosis discussed with patient/family followed by verbalization of understanding Return precautions discussed with patient/family whom verbalize understanding of diagnosis and plan Discharge Plan Departure Patient Disposition: Home Clinical Impression: Bright red rectal bleeding Hemorrhoid Qualifiers: Hemorrhoid type: unspecified Qualified Code(s): K64.9 - Unspecified hemorrhoids Instructions: DI for Hemorrhoids Activity Restrictions/Additional Instructions: *You have been diagnosed with [rectal bleeding likely from ruptured hemorrhoid, since resolved] *What to do: *Please continue to take your regular medications as directed. *Please follow up with Dr. Kiser as previously planned, however, please call the office and let them know you were seen in the Emergency Department and that we ask that you be seen in follow up. We will electronically transmit a record of today's note if your PCP is in our system *Return to Emergency Department if you should have any new, worsening or concerning symptoms, such as [fever greater than 101 F, shaking chills, worsening pain, persistent vomiting or other bothersome symptoms] Prescriptions: No Action acetaminophen [Tylenol Extra Strength] 500 mg tablet 500 mg PO Q6H PRN (Reason: Pain (Scale Score 4-6)) atorvastatin 10 mg tablet 10 mg PO DAILY benzonatate 100 mg capsule 100 mg PO TID PRN (Reason: cough) Qty: 30 2RF atorvastatin 20 mg tablet 20 mg PO BEDTIME Asmanex HFA 100 mcg/actuation HFA aerosol inhaler 1 puff inhalation BID amlodipine 2.5 mg tablet 2.5 mg PO DAILY Qty: 30 2RF Tucks (witkathrine gordy) 1 EACH pads, medicated 1 ea TP QDAY Qty: 0 Disabled Parking Permit Qty: 1 0RF (DME) Flexichamber Spacer See Rx Instructions .Route Qty: 1 0RF Rx Instructions: As directed albuterol sulfate 90 mcg/actuation HFA aerosol inhaler 2 puff inhalation Q6H PRN (Reason: shortness of breath or wheezing) Qty: 6.7 5RF sodium,potassium,mag sulfates [Suprep Bowel Prep Kit] 17.5-3.13-1.6 gram recon soln See Rx Instructions PO .COMPLEX Qty: 354 0RF Rx Instructions: take as directed by Physician multivitamin [Daily Multi-Vitamin] Tablet 1 tab PO DAILY psyllium Powder 1 tbsp PO DAILY Rx Instructions: mix into at least 8 oz of water or juice before administering latanoprost 0.005 % drops 1 drop EYE-BOTH DAILY Referrals: Lance Hughes MD [Primary Care Provider] - Seth Kiser MD [Physician] - Stand Alone Forms: Patient Portal/API
[2023-10-19 12:00] VITALS: BP 132/70; PULSE 75; RESP 16; O2SAT 99
== END 2023-10-19 12:01 | disposition home or self-care (01) ==
PROVIDERS: Emergency Provider Emergency Medicine; PCP Family Medicine
DX: K64.9 Unspecified hemorrhoids (principal)
CPT/HCPCS: 99281; 99282

== ENCOUNTER 2023-11-16 11:27 | Day surgery (SDC) | payer MEDICARE, SELFPAY ==
[2023-11-16] MEDS: LACTATED RINGERS 1,000 ML 100 ML IV (11:58)
[2023-11-16 12:01] VITALS: BP 134/78; PULSE 82; RESP 16; TEMP 36.4; O2SAT 100
--- NOTE | 2023-11-16 13:08 | PM.HP.1 ---
History of Present Illness History of Present Illness Date Patient Seen: 11/16/23 Time Patient Seen: 13:08 Chief complaint: Dx Colonoscopy w/ligation Narrative: Misa is a 73 year old man here for a colonoscopy for rectal bleeding. He did have a recent flare-up of prolapsed internal hemorrhoids that were bleeding significantly. It has stopped in the past few weeks. See prior office note for more details. [facility] Medical History Injury of tendon of thumb Arthritis Left foot pain History of renal calculi (12/11/14) Social History household members: none Smoking Status: Never smoker alcohol intake: current Meds Home Medications and Allergies Home Medications Medication Instructions Recorded Confirmed Type witch gordy 50 % topical pads 1 ea TP QDAY ##0 12/15/15 10/20/23 History (Tucks (witch gordy)) Disabled Parking Permit ea ##1 09/29/16 10/02/23 Rx acetaminophen 500 mg tablet 500 mg PO Q6H PRN Pain (Scale 10/02/17 10/20/23 History (Tylenol Extra Strength) Score 4-6) multivitamin (Daily Multi-Vitamin 1 tab PO DAILY 11/13/19 10/20/23 History tablet) psyllium 1 tbsp PO DAILY 11/13/19 10/20/23 History atorvastatin 20 mg tablet 20 mg PO BEDTIME 06/08/23 11/16/23 History albuterol sulfate 90 mcg/actuation 2 puff inhalation Q6H PRN 06/12/23 11/16/23 Rx aerosol inhaler shortness of breath or wheezing #6.7 grams amlodipine 2.5 mg tablet 2.5 mg PO DAILY #30 tabs 07/06/23 11/16/23 Rx sodium,potassium,mag sulfates 17.5 See Rx Instructions PO .COMPLEX 10/02/23 Rx gram-3.13 gram-1.6 gram oral soln #354 mL (Suprep Bowel Prep Kit) cholecalciferol (vitamin D3) 25 PO 10/20/23 10/20/23 History mcg (1,000 unit) tablet dorzolamide 2 % eye drops 1 drp EYE-BOTH BID 10/20/23 10/20/23 History loperamide 2 mg capsule 2 mg PO DAILY 10/20/23 10/20/23 History latanoprost 0.005 % eye drops drp EYE-BOTH DAILY 11/03/23 History Allergies Allergy/AdvReac Type Severity Reaction Status Date / Time NSAIDS (Non-Steroidal AdvReac GI bleed Verified 11/16/23 12:00 Anti-Inflamma Exam Vital Signs (past 8 hours): - 11/16/23 12:01 Temperature 97.6 F Pulse Rate 82 Respiratory Rate 16 Blood Pressure 134/78 Pulse Oximetry 100 Oxygen Delivery Method Room Air Oxygen Delivery Method Room Air Const General: No acute distress Resp Effort & Inspection: normal respiratory effort Assessment & Plan Assessment and plan (1) Rectal bleeding: Status: Acute Plan We reviewed the risks and benefits of colonoscopy for rectal bleeding and he would like to proceed. We can perform rubber-band ligation on any internal hemorrhoid columns that are prominent. Time-Based Coding :: [TOTAL MINUTES] spent with patient and on the chart (including review of chart, obtaining history, exam, reviewing outside data, placing orders, documenting exam and treatment plan, and counseling patient) on [DATE].
[2023-11-16 13:54] VITALS: BP 99/58; PULSE 78; RESP 20; TEMP 36.2; O2SAT 98
--- NOTE | 2023-11-16 13:54 | PM.OP.COLON ---
Operative Date/Time/Diagnoses Date of procedure: 11/16/23 Time of procedure: 13:54 Pre-op diagnosis: Rectal bleeding Post-op diagnosis: same Procedure & Clinicians Study performed: Colonoscopy Rubber-band ligation of internal hemorrhoids Surgeon: Seth Kiser Procedure Notes Procedure in detail: Surgeon: Seth Kiser MD Anesthesia: Esther Galan CRNA Procedure: The patient was brought to the endoscopy suite, placed in left lateral decubitus position. The patient was connected to monitoring devices. A time-out was performed. Sedation was administered. Once the patient was adequately sedated, a digital rectal exam was performed and was normal. The scope was then inserted and advanced to the cecum where the appendiceal orifice was identified and photographed. The scope was then slowly withdrawn over greater than 6 minutes. The mucosa was thoroughly inspected. No polyps were found. The scope was retroflexed in the rectum. Internal hemorrhoids were noted. The scope was straightened and removed. We then inserted the anoscope and performed rubber-band ligation of internal hemorrhoids in the left lateral, right anterior and right posterior columns. The patient was awakened and brought to recovery. Scope withdrawal time: 10 minutes Sedation time: 16 minutes EBL: 3 mL Findings: Internal hemorrhoids Post-procedure Disposition: PACU
[2023-11-16 14:00] VITALS: BP 137/65; PULSE 73; RESP 16; O2SAT 99
[2023-11-16 14:04] VITALS: BP 112/58; PULSE 64; RESP 12; TEMP 36.6; O2SAT 100
[2023-11-16 14:06] VITALS: BP 117/51; PULSE 68; RESP 16; O2SAT 99
== END 2023-11-16 14:25 | disposition home or self-care (01) ==
PROVIDERS: PCP Family Medicine; Referring Provider Surgery; Visit Provider Surgery
PROC: 0DJD8ZZ Inspection of Lower Intestinal Tract, Via Natural or Artificial Opening Endoscopic (ICD-10-PCS; CPT 45378; principal; 2023-11-16 13:00)
DX: K62.5 Hemorrhage of anus and rectum (principal); K64.9 Unspecified hemorrhoids
CPT/HCPCS: 45378; 46221; J2704

== ENCOUNTER 2023-12-10 07:01 | Emergency (ER) | payer OTHER, SELFPAY ==
[2023-12-10 07:18] VITALS: PULSE 76; O2SAT 99
[2023-12-10 07:19] VITALS: BP 189/93; PULSE 69; O2SAT 99
[2023-12-10 07:24] VITALS: BP 189/93; PULSE 75; RESP 16; TEMP 36.6; O2SAT 99; BMI 23.3
[2023-12-10 07:30] VITALS: BP 174/99; PULSE 70; O2SAT 98
--- NOTE | 2023-12-10 07:35 | ED_ITS ---
HPI - Extremity Injury (Upper) General Chief Complaint: Extremity Injury, Upper Stated Complaint: Intense pain in right shoulder, tingling in hands Time Seen by Provider: 12/10/23 07:28 History of Present Illness HPI narrative: Patient is 73-year-old male history of IBS presenting today with right shoulder pain. States that he was painting with his right hand for a number of hours 1 week ago. Since then he has had increased pain in his right shoulder blade numbness and tingling down his right arm. He has had a lidocaine patch on alternated Tylenol and ibuprofen. He reports that many years ago he had rectal bleeding secondary to NSAID use after a foot injury. He reports no rectal bleeding so far. He has no fall. Related Data Home Medications Medication Instructions Recorded Confirmed witch gordy 50 % topical pads 1 ea TP QDAY ##0 12/15/15 10/20/23 (Tucks (witch gordy)) acetaminophen 500 mg tablet 500 mg PO Q6H PRN Pain (Scale 10/02/17 10/20/23 (Tylenol Extra Strength) Score 4-6) multivitamin (Daily Multi-Vitamin 1 tab PO DAILY 11/13/19 10/20/23 tablet) psyllium 1 tbsp PO DAILY 11/13/19 10/20/23 atorvastatin 20 mg tablet 20 mg PO BEDTIME 06/08/23 11/16/23 cholecalciferol (vitamin D3) 25 PO 10/20/23 10/20/23 mcg (1,000 unit) tablet dorzolamide 2 % eye drops 1 drp EYE-BOTH BID 10/20/23 10/20/23 loperamide 2 mg capsule 2 mg PO DAILY 10/20/23 10/20/23 latanoprost 0.005 % eye drops drp EYE-BOTH DAILY 11/03/23 Previous Rx's Medication Instructions Recorded Disabled Parking Permit ea ##1 09/29/16 albuterol sulfate 90 mcg/actuation 2 puff inhalation Q6H PRN 06/12/23 aerosol inhaler shortness of breath or wheezing #6.7 grams amlodipine 2.5 mg tablet 2.5 mg PO DAILY #30 tabs 07/06/23 sodium,potassium,mag sulfates 17.5 See Rx Instructions PO .COMPLEX 10/02/23 gram-3.13 gram-1.6 gram oral soln #354 mL (Suprep Bowel Prep Kit) hydrocodone 5 mg-acetaminophen 325 1 tab PO Q6H PRN pain #10 tabs 12/10/23 mg tablet prednisone 20 mg tablet 40 mg (2 x 20 mg) PO DAILY #10 tabs 12/10/23 Allergies Allergy/AdvReac Type Severity Reaction Status Date / Time No Known Drug Allergies Allergy Verified 12/10/23 07:42 Patient History Medical History Injury of tendon of thumb Arthritis Left foot pain History of renal calculi (12/11/14) Social History household members: none Smoking Status: Never smoker alcohol intake: current Smoking Status: Never smoker alcohol intake frequency: a few times a week Substance Use Type: does not use Exam Initial Vital Signs Initial Vital Signs: Vital Signs Pulse Rate 76 12/10/23 07:18 Pulse Oximetry 99 12/10/23 07:18 GENERAL: Well-appearing, well-nourished and in no acute distress. CARDIOVASCULAR: peripheral pulses in tact, cap refill <2 sec RESPIRATORY: No respiratory distress, speaks in full sentences without difficul ty EXTREMITIES: Normal range of motion, no clubbing or edema. Neurovascularly intact Right upper extremity tender over scapula decreased at ductions able to do so radial median ulnar nerve motor and sensation intact currently has a lidocaine patch on, no obvious muscle spasm NEUROLOGICAL: Cranial nerves II through XII grossly intact. Normal gait and speech. SKIN: Warm, dry, no petechiae, no rashes or lesions. Course Orders Ordered: ED Orders 12/10/23 07:36 XR shoulder RT min 2V Stat Discontinued Medications Ketorolac Tromethamine (Ketorolac 30 Mg/Ml Vial) 30 mg IM NOW ONE Stop: 12/10/23 07:37 Last Admin: 12/10/23 07:46 Dose: 30 mg Documented By: DUGLAS Vital Signs Vital signs: Vital Signs - 8 hr 12/10/23 07:18 12/10/23 07:19 12/10/23 07:19 Temperature Pulse Rate 76 69 Respiratory Rate Blood Pressure 189/93 H Pulse Oximetry 99 99 Oxygen Delivery Method 12/10/23 07:24 12/10/23 07:30 12/10/23 07:30 Temperature 97.8 F Pulse Rate 75 70 Respiratory Rate 16 Blood Pressure 189/93 H 174/99 H Pulse Oximetry 99 98 Oxygen Delivery Method Room Air 12/10/23 08:00 12/10/23 08:30 Temperature Pulse Rate 77 66 Respiratory Rate 16 Blood Pressure Pulse Oximetry 96 94 Oxygen Delivery Method MDM - Extremity Injury (Upper) Imaging Data Extremity x-ray #1: Radiologist's Impression: PROCEDURE: XR SHOULDER RT MIN 2V INDICATIONS: pain injury TECHNIQUE: 3 views of the shoulder were acquired. COMPARISON: None. FINDINGS: Bones: No acute fractures or dislocations. Mild chronic angulation of the proximal humeral shaft is likely related to a remote prior injury. No suspicious bony lesions. Visualized ribs appear intact. Skid-id-yafpeyku acromioclavicular and glenohumeral osteoarthrosis. Soft tissues: No suspicious soft tissue calcifications. IMPRESSION: No acute osseous abnormality. If there is continued clinical concern or persistent symptoms, repeat radiographs or cross-sectional imaging (e.g. CT, MRI) may be helpful for further evaluation. Approved by: Avery Adame M.D. on 12/10/2023 at 8:24 [facility] Narrative Medical decision making narrative: Patient is 73-year-old male presenting today with right shoulder pain slight decreased range of motion pain over scapula x-ray is negative. Suspect nerve impingement or rotator cuff injury. Recommend outpatient MRI. He has given a shot of Toradol here a sling encouraged to move it. Head prescription for prednisone. He has previously a GI bleed with multiple NSAIDs. Cautioned him it would avoid using ongoing NSAIDs based on history. Discharge Plan Departure Patient Disposition: Home Clinical Impression: Rotator cuff impingement syndrome Instructions: DI for Rotator Cuff Injury Activity Restrictions/Additional Instructions: *You have been diagnosed with probable rotator cuff *What to do: At this time increase movement activity as tolerated. I do recommend that you have an outpatient MRI. Please discuss with orthopedics or your PCP for further imaging You may wear sling but please be sure to take it out and move shoulder multiple times a day light activity is encouraged *Continue to take medications as directed--> set to [place] [facility] Based on your history of GI bleeding I would avoid ibuprofen/Motrin/Advil/naproxen [place] 1 tablet every 6 hours if needed for severe pain or at nighttime to help with sleeping Prednisone 40 mg once a day for 5 days *Follow up with your primary care provider in 2-3 days or call [phone] *Return to ER if you should have increasing pain numbness tingling weakness or any new, worsening or concerning symptoms CONTROLLED SUBSTANCE DISCHARGE (Narcotoic/benzodiazepine/Flexeril/Phenergan) 1. You have been prescribed narcotic medications, it does have acetaminophen/Tylenol/paracetamol in it, DO NOT TAKE MORE THAN 4,00mg in 24 hours of Tylenol. TRAMADOL DOES NOT CONTAIN TYLENOL 2. Please understand that we cannot provide further refills of narcotics, benzodiazepines or controlled substances through the ED and her pain management will need to be through your provider. 3. While on these medications you cannot drive or operate heavy machinery. 4. You cannot sign legal documents or perform any duties such as this. 5. As long as you're taking opiate pain medications he should also be taking a stool softener such as Colace, Dulcolax, MiraLAX or prune juice, to help avoid constipation. Prescriptions: New hydrocodone-acetaminophen 5-325 mg tablet 1 tab PO Q6H PRN (Reason: pain) Qty: 10 0RF prednisone 20 mg tablet 40 mg PO DAILY Qty: 10 0RF No Action acetaminophen [Tylenol Extra Strength] 500 mg tablet 500 mg PO Q6H PRN (Reason: Pain (Scale Score 4-6)) atorvastatin 20 mg tablet 20 mg PO BEDTIME amlodipine 2.5 mg tablet 2.5 mg PO DAILY Qty: 30 2RF dorzolamide 2 % drops 1 drp EYE-BOTH BID cholecalciferol (vitamin D3) 25 mcg (1,000 unit) tablet PO loperamide 2 mg capsule 2 mg PO DAILY Angela (giselle kaminski) 1 EACH pads, medicated 1 ea TP QDAY Qty: 0 Disabled Parking Permit Qty: 1 0RF albuterol sulfate 90 mcg/actuation HFA aerosol inhaler 2 puff inhalation Q6H PRN (Reason: shortness of breath or wheezing) Qty: 6.7 5RF sodium,potassium,mag sulfates [Suprep Bowel Prep Kit] 17.5-3.13-1.6 gram recon soln See Rx Instructions PO .COMPLEX Qty: 354 0RF Rx Instructions: take as directed by Physician latanoprost 0.005 % drops EYE-BOTH DAILY Patient Comments: 11/03/23: using x 45yrs multivitamin [Daily Multi-Vitamin] Tablet 1 tab PO DAILY psyllium Powder 1 tbsp PO DAILY Rx Instructions: mix into at least 8 oz of water or juice before administering Referrals: Lance Hughes MD [Primary Care Provider] - Stand Alone Forms: Patient Portal/API
[2023-12-10] MEDS: KETOROLAC 30 MG/ML VIAL IM (07:46)
--- NOTE | 2023-12-10 07:49 | PC.NURSE ---
Pt states he was painting above his head; increasing right shoulder pain
[2023-12-10 08:00] VITALS: PULSE 77; O2SAT 96
[2023-12-10 08:30] VITALS: PULSE 66; RESP 16; O2SAT 94
== END 2023-12-10 08:37 | disposition home or self-care (01) ==
PROVIDERS: Emergency Provider Emergency Medicine; PCP Family Medicine
DX: M75.41 Impingement syndrome of right shoulder (principal)
CPT/HCPCS: 73030; 96372; 99283; J1885

== ENCOUNTER → 2024-03-01 12:23 | Outpatient (CLI) | payer MEDICARE, SELFPAY ==
[2024-03-01 12:47] LABS: Add Manual Diff / Slide Review NO; Basophils Absolute Auto 100 /uL (0-100); Basophils Percent Auto 0.8 % (0-2); Eosinophils Absolute Auto 300 /uL (0-450); Hematocrit 43.2 % (41-53); Hemoglobin 14.6 g/dL (13.5-17.5); Lymphocytes Absolute Auto 2500 /uL (1100-4500); Lymphocytes Percent Auto 37.2 % (25-40); Mean Corpuscular HGB Conc 33.7 % (30-36); Mean Corpuscular Hemoglobin 29.5 PG (26-34); Mean Corpuscular Volume 87.7 fL (80-100); Monocytes Absolute Auto 600 /uL (0-900); Neutrophils Absolute Auto 3200 /uL (1500-7000); Platelet Count 231 X10^3/uL (150-400); Red Blood Cell Count 4.93 X10^6/uL (4.5-5.9); Red Cell Distribution Width 15.8 % (11.6-14.8); White Blood Cell Count 6.6 X10^3/uL (4.5-11.0)
[2024-03-01 13:08] LABS: Alanine Aminotransferase 18 IU/L (<50); Albumin 4.3 g/dL (3.5-5.0); Alkaline Phosphatase 90 U/L (38-126); Aspartate Aminotransferase 22 IU/L (17-59); BUN Creatinine Ratio 18.7 (6-22); Bilirubin Total 1.7 mg/dL (0.2-1.3); Blood Urea Nitrogen 14 mg/dL (9-20); Calcium 9.4 mg/dL (8.4-10.2); Carbon Dioxide 26 mmol/L (22-32); Chloride 104 mmol/L (98-107); Cholesterol 150 mg/dL (140-199); Estimated Glomerular Filt Rate > 60 mL/min (>60); Globulin 2.2 g/dL (1.7-4.1); Glucose 98 mg/dL (80-110); HDL Cholesterol 53 mg/dL (40-60); HEMOLYSIS < 15 (0-50); LDL Cholesterol Calculated 71 mg/dL (<100); Potassium 3.7 mmol/L (3.4-5.1); Sodium 138 mmol/L (137-145); Total Protein 6.5 g/dL (6.3-8.2); Triglycerides 129 mg/dL (35-150)
[2024-03-01 14:28] LABS: Creatinine Urine Random 201.19 mg/dL
[2024-03-03 16:52] LABS: Hep C Virus Ab w/Reflex Quant NEGATIVE s/c (NEGATIVE)
== END ==
PROVIDERS: Family Provider Family Medicine; PCP Family Medicine; Referring Provider Family Medicine; Visit Provider Family Medicine
DX: I10 Essential (primary) hypertension (principal); Z13.9 Encounter for screening, unspecified; Z11.59 Encounter for screening for other viral diseases; K62.5 Hemorrhage of anus and rectum; E78.00 Pure hypercholesterolemia, unspecified
CPT/HCPCS: 36415; 80053; 80061; 82043; 82570; 85025; 86803

== ENCOUNTER → 2024-03-07 08:05 | Outpatient (CLI) | payer MEDICARE, SELFPAY | PROVIDERS: Family Provider Family Medicine; PCP Family Medicine; Referring Provider Family Medicine; Visit Provider Family Medicine | DX: R09.89 Other specified symptoms and signs involving the circulatory and respiratory systems (principal); R94.2 Abnormal results of pulmonary function studies; J45.20 Mild intermittent asthma, uncomplicated | CPT/HCPCS: 94060; 94726; 94729 ==

== ENCOUNTER → 2024-03-12 12:04 | Outpatient (CLI) | payer MEDICARE, SELFPAY ==
--- NOTE | 2024-03-12 12:05 | DI.CT.S_ITS ---
PROCEDURE: CT CHEST WO CON INDICATIONS: follow up chest xray, PFT TECHNIQUE: Noncontrast 2.0-2.5 mm thick sections acquired from the pulmonary apices to the posterior costophrenic angles. 7 mm thick axial MIP and 5 mm coronal and sagittal reformats were then acquired. For radiation dose reduction, the following was used: automated exposure control, adjustment of mA and/or kV according to patient size. COMPARISON: None. FINDINGS: Image quality: Excellent Lungs: Mild bronchial wall thickening. Multifocal mild mucous plugging. No significant emphysema. Multiple scattered pulmonary nodules, measuring up to 4 mm in the left basal lower lobe (3:271). No pleural effusion pneumothorax. No pulmonary edema or focal consolidation. Soft tissue/mediastinal findings: Mild calcification of the thoracic aorta. No thoracic aortic aneurysm. Heart is normal in size. No pericardial effusion. Severe calcification of the left main coronary artery. Moderate calcification of the LAD. No mediastinal, hilar lymphadenopathy. No axillary lymphadenopathy. Visualized upper abdomen: 1.7 cm mildly hypoattenuating liver lesion in hepatic segment 8 (2:97), incompletely evaluated. Additional suggestion of 8 mm mildly hypoattenuating liver lesion in hepatic segment 5 (2: 110). Punctate left renal stone. Bones: No suspicious lytic or blastic lesion. S-shaped scoliosis of the thoraco lumbar spine. Mild anterior degenerative wedging of a midthoracic vertebral body. IMPRESSION: 1. Mild bronchial wall thickening with multifocal mild mucous plugging. 2. Multiple small pulmonary nodules, measuring up to 4 mm. Recommendations below. 3. Multiple mildly hypoattenuating liver lesion, measuring up to 1.7 cm, incompletely evaluated. They do not have the typical appearance of liver cyst. Recommend further evaluation with CT or MRI liver protocol. Fleischner Society criteria for SOLID lung nodule followup. Nodule size (mm)Low-risk patientHigh-risk patient<6 (single or multiple)No routine followup.Optional CT at 12 months. 6-8 (single or multiple)CT at 6-12 months, then optional CT at 18-24 mo.CT at 6-12 months, then CT at 18-24 months. >8 (single)CT at 3 months, PET-CT, or biopsy. Same as for low-risk pts. >8 (multiple)CT at 3-6 months, then optional CT at 18-24 mo.CT at 3-6 months, then CT at 18-24 months. Recommendations do not apply to lung cancer screening, patients with immunosuppression, or patients with known primary cancer. Dictated by: Audrey Paz M.D. on 03/12/2024 at 16:31 Approved by: Audrey Paz M.D. on 03/12/2024 at 16:47 PATIENT NAME: MELBA DECKER : 1950 EXAM DATE: 03/12/2024 12:[address] SAVANNA PACHECO M.D. CC: TOI IQBAL M.D. MODALITY: CT PATIENT TYPE: Out CONTRAST MEDIA: STATION ID: [id number] FLUORO TIME: PATIENT NAME: MELBA DECKER : 1950 EXAM DATE: 03/12/2024 12:[address] SAVANNA PACHECO M.D. CC: TOI IQBAL M.D. MODALITY: CT PATIENT TYPE: Out CONTRAST MEDIA: STATION ID: [id number] FLUORO TIME:
== END ==
LOC: CT 12:05
PROVIDERS: Family Provider Family Medicine; PCP Family Medicine; Referring Provider Family Medicine; Visit Provider Family Medicine
DX: J43.9 Emphysema, unspecified (principal); R91.8 Other nonspecific abnormal finding of lung field; K76.89 Other specified diseases of liver
CPT/HCPCS: 71250

== ENCOUNTER → 2024-04-08 14:30 | Outpatient (CLI) | payer MEDICARE, SELFPAY ==
[2024-04-08 15:04] LABS: Estimated Glomerular Filt Rate > 60 mL/min (>60)
== END ==
LOC: LAB 14:32
PROVIDERS: Radiology Diagnostic Radiology; Family Provider Family Medicine; PCP Family Medicine; Referring Provider Family Medicine; Visit Provider Family Medicine
DX: K76.9 Liver disease, unspecified (principal)
CPT/HCPCS: 36415; 82565

== ENCOUNTER → 2024-04-09 14:20 | Outpatient (CLI) | payer MEDICARE, SELFPAY ==
--- NOTE | 2024-04-09 14:21 | DI.CT.S_ITS ---
PROCEDURE: CT ABDOMEN LIVER PROTOCOL INDICATIONS: Hepatic lesions on CT chest TECHNIQUE: 4 phase scanning was performed. Non-contrast 5 mm axial sections acquired from the diaphragm to the iliac crests. Following the administration of intravenous contrast, 5 mm thick arterial-phase, portal venous-phase, and 5-minute delayed phase images were acquired through the liver. 5 mm thick coronal and sagittal reformats were performed. For radiation dose reduction, the following was used: automated exposure control, adjustment of mA and/or kV according to patient size. COMPARISON: [facility], CT, CT CHEST WO CON, 03/12/2024, 12:15. FINDINGS: Image quality: Diagnostic Lower chest: There are small pulmonary nodules, better assessed on recent chest CT. Small fat containing right Bochdalek's hernia. Mildly patulous distal esophagus, nonspecific. Liver: Right lobe cavernous hemangioma, benign. Other smaller similar cavernous hemangiomas are also seen in the right lobe and left lobe small flash filling lesions, for example on 07/28 and 07/21 are technically indeterminate, but favored represent capillary hemangiomas. Gallbladder and biliary system: Unremarkable, nondilated Pancreas: Unremarkable Spleen: Nonenlarged Adrenals: No discrete nodules Kidneys: No solid mass or hydronephrosis. 2 mm nonobstructing left renal calculus. Vessels and lymph nodes: The main portal vein is patent. No abdominal aortic aneurysm. No pathologic lymph nodes by size criteria. Bowel and peritoneum: No small bowel obstruction. There is moderate fecal loading. No pathologic ascites. Body wall: Small fat containing umbilical hernia Bones: There are degenerative changes. IMPRESSION: Multiple liver lesions have imaging characteristics favoring cavernous and capillary hemangiomas. If the patient does not otherwise have a malignancy history, these can be considered benign. Other findings above. Dictated by: Timmy Craig M.D. on 04/09/2024 at 16:14 Approved by: Timmy Craig M.D. on 04/09/2024 at 16:20
== END ==
PROVIDERS: Family Provider Family Medicine; PCP Family Medicine; Referring Provider Family Medicine; Visit Provider Family Medicine
DX: K76.9 Liver disease, unspecified (principal); K44.9 Diaphragmatic hernia without obstruction or gangrene; R91.8 Other nonspecific abnormal finding of lung field; K42.9 Umbilical hernia without obstruction or gangrene; N20.0 Calculus of kidney
CPT/HCPCS: 74170; Q9967

== ENCOUNTER → 2024-05-02 14:54 | Outpatient (CLI) | payer MEDICARE, SELFPAY ==
[2024-05-02 18:28] LABS: Cholesterol 154 mg/dL (140-199); HDL Cholesterol 70 mg/dL (40-60); LDL Cholesterol Calculated 69 mg/dL (<100); Triglycerides 77 mg/dL (35-150)
== END ==
PROVIDERS: Family Provider Family Medicine; PCP Family Medicine; Referring Provider Internal Medicine Cardiovascular Disease; Visit Provider Internal Medicine Cardiovascular Disease
DX: E78.5 Hyperlipidemia, unspecified (principal)
CPT/HCPCS: 36415; 80061

== ENCOUNTER 2025-01-17 10:22 | Emergency (ER) | payer OTHER, SELFPAY ==
[2025-01-17 10:43] VITALS: BP 166/97; PULSE 66; RESP 20; TEMP 36.1; O2SAT 100; BMI 22.6
--- NOTE | 2025-01-17 12:02 | ED.BACK ---
HPI - Back Pain/Injury <Clarissa aPlacios PA-C - Last Filed: 01/17/25 13:27> General Chief Complaint: Back Pain/Injury Stated Complaint: Possible Pinched nerve in back Time Seen by Provider: 01/17/25 11:12 Source: patient History of Present Illness HPI Narrative: Mr. Altman is a very pleasant 74-year-old male with a past medical history of lumbar herniated discs, CAD, HTN, HLD, asthma who presents to the emergency department for left glute pain x3 days. Patient states it feels like he has a ?pinched nerve? in his left SI joint region, states that he has had this before but it has been a few years. States that the pain started when he was working on his truck. Reports his pain has resolved in the past with a cortisone shot physical therapy. Denies any numbness tingling or weakness of the lower extremities, low back pain, dysuria, hematuria, saddle anesthesia, abdominal pain, nausea, vomiting, diarrhea, constipation, bowel or bladder dysfunction, fevers, chills or other concerns. He is ambulatory with a cane. He drove himself here. Related Data Home Medications ?Medication ?Instructions ?Recorded ?Confirmed acetaminophen 500 mg tablet 500 mg PO Q6H PRN Pain (Scale 10/02/17 01/03/24 (Tylenol Extra Strength) Score 4-6) multivitamin (Daily Multi-Vitamin 1 tab PO DAILY 11/13/19 01/03/24 tablet) psyllium 1 tbsp PO DAILY 11/13/19 01/03/24 atorvastatin 20 mg tablet 20 mg PO BEDTIME 06/08/23 01/03/24 cholecalciferol (vitamin D3) 25 PO 10/20/23 01/03/24 mcg (1,000 unit) tablet dorzolamide 2 % eye drops 1 drp EYE-BOTH BID 10/20/23 01/03/24 loperamide 2 mg capsule 2 mg PO DAILY 10/20/23 01/03/24 latanoprost 0.005 % eye drops drp EYE-BOTH DAILY 11/03/23 01/03/24 Previous Rx's ?Medication ?Instructions ?Recorded Disabled Parking Permit ea ##1 09/29/16 albuterol sulfate 90 mcg/actuation 2 puff inhalation Q6H PRN 06/12/23 aerosol inhaler shortness of breath or wheezing #6.7 grams amlodipine 2.5 mg tablet 2.5 mg PO DAILY #30 tabs 07/06/23 hydrocodone 5 mg-acetaminophen 325 1 tab PO BEDTIME PRN pain (scale 01/17/25 mg tablet score 7-10) #5 tabs lidocaine 5 % topical patch 1 patch topical DAILY #30 ea 01/17/25 (Lidoderm) prednisone 20 mg tablet 40 mg (2 x 20 mg) PO DAILY 5 days 01/17/25 #10 tabs Allergies Allergy/AdvReac Type Severity Reaction Status Date / Time No Known Drug Allergies Allergy Verified 01/17/25 10:43 Review of Systems <Clarissa Palacios PA-C - Last Filed: 01/17/25 13:27> Review of Systems ROS Unobtainable: All systems reviewed & are unremarkable except as noted in HPI and below Patient History <Clarissa Palacios PA-C - Last Filed: 01/17/25 13:27> Medical History Injury of tendon of thumb Arthritis Left foot pain History of renal calculi (12/11/14) Social History household members: none Smoking Status: Never smoker alcohol intake: current Smoking Status: Never smoker alcohol intake frequency: a few times a week Exam <Clarissa Palacios PA-C - Last Filed: 01/17/25 13:27> Narrative Exam Narrative: GENERAL: 74 year old patient appears stated age. Well-developed patient, in no acute distress. HEAD: Atraumatic. Normocephalic. EYES:No scleral icterus. No injection or drainage. NECK: Trachea midline. Cervical ROM intact. CARDIOVASCULAR: Regular rate and rhythm. RESPIRATORY: ?Nonlabored respirations. ?Speaking in clear, full sentences. ?Clear to auscultation. Breath sounds equal bilaterally. No wheezes, rales, or rhonchi. ? GASTROINTESTINAL: Abdomen soft, non-tender, nondistended. EXTREMITIES: 2+ bilateral DP and PT pulses, sensation intact to light touch on the plantar and dorsal aspect of both feet, 5/5 bilateral dorsi/plantar flexion strength. BACK: No midline spinal tenderness. There is subjective pain and some tenderness with deep palpation of the left SI joint. NEURO: AOx3. ?Clear speech. ?Ambulates independently with a cane. Sensation intact to light touch throughout the bilateral lower extremities. SKIN: No rash or erythema of visible areas Initial Vital Signs Initial Vital Signs: Vital Signs Temperature 97 F L 01/17/25 10:43 Pulse Rate 66 01/17/25 10:43 Respiratory Rate 20 01/17/25 10:43 Blood Pressure 166/97 H 01/17/25 10:43 Pulse Oximetry 100 01/17/25 10:43 Oxygen Delivery Method Room Air 01/17/25 10:43 <Catie Marinelli DO - Last Filed: 01/18/25 07:46> Initial Vital Signs Initial Vital Signs: Vital Signs Temperature 97 F L 01/17/25 10:43 Pulse Rate 66 01/17/25 10:43 Respiratory Rate 20 01/17/25 10:43 Blood Pressure 166/97 H 01/17/25 10:43 Pulse Oximetry 100 01/17/25 10:43 Oxygen Delivery Method Room Air 01/17/25 10:43 Course <Clarissa Palacios PA-C - Last Filed: 01/17/25 13:27> Orders Ordered: Discontinued Medications Ketorolac Tromethamine (Ketorolac 30 Mg/Ml Vial) 30 mg IM NOW ONE Stop: 01/17/25 12:33 Last Admin: 01/17/25 12:54 Dose: 30 mg Documented By: Lidocaine (Lidocaine 5% Patch) 1 each TOP NOW ONE Stop: 01/17/25 12:33 Last Admin: 01/17/25 12:54 Dose: 1 each Documented By: Prednisone (Prednisone 20 Mg Tablet) 40 mg PO NOW ONE Stop: 01/17/25 12:33 Last Admin: 01/17/25 12:54 Dose: 40 mg Documented By: Vital Signs Vital signs: Vital Signs - 8 hr 01/17/25 10:43 01/17/25 13:10 Temperature 97 F L 98.6 F Pulse Rate 66 66 Respiratory Rate 20 19 Blood Pressure 166/97 H 145/78 H Pulse Oximetry 100 100 Oxygen Delivery Method Room Air Room Air <Catie Marinelli DO - Last Filed: 01/18/25 07:46> Orders Ordered: Discontinued Medications Ketorolac Tromethamine (Ketorolac 30 Mg/Ml Vial) 30 mg IM NOW ONE Stop: 01/17/25 12:33 Last Admin: 01/17/25 12:54 Dose: 30 mg Documented By: Lidocaine (Lidocaine 5% Patch) 1 each TOP NOW ONE Stop: 01/17/25 12:33 Last Admin: 01/17/25 12:54 Dose: 1 each Documented By: Prednisone (Prednisone 20 Mg Tablet) 40 mg PO NOW ONE Stop: 01/17/25 12:33 Last Admin: 01/17/25 12:54 Dose: 40 mg Documented By: Vital Signs Vital signs: Vital Signs - 8 hr 01/17/25 10:43 01/17/25 13:10 Temperature 97 F L 98.6 F Pulse Rate 66 66 Respiratory Rate 20 19 Blood Pressure 166/97 H 145/78 H Pulse Oximetry 100 100 Oxygen Delivery Method Room Air Room Air MDM - Back Pain/Injury <Clarissa Palacios PA-C - Last Filed: 01/17/25 13:27> Medical Records Attestation: I reviewed the patient's medical records. MDM Narrative Medical decision making narrative: 74-year-old male with a past medical history of lumbar herniated discs, CAD, HTN, HLD, asthma who presents to the emergency department for left glute pain x3 days. Differential diagnosis includes but is not limited to sacroiliitis, lumbar radiculopathy, arthritis, herniated disc, spinal stenosis, etc. On exam the patient is in no acute distress, nontoxic appearing, ambulatory with a cane. Bilateral lower extremities are neurovascularly intact. No bowel or bladder incontinence, fevers, urinary retention or saddle anesthesia. Has reproducible SI joint tenderness, worse with ambulation after working on his truck 3 days ago. After shared decision-making with the patient, we will treat with Toradol, Lidoderm and prednisone in the ED, advised he follow up promptly with his primary care doctor for referral to physical therapy and ortho, also discussed sending patient short course of hydrocodone if needed at night for severe breakthrough pain however discuss the risks of narcotics. Patient has been using ibuprofen and Tylenol and will continue to do so, discussed eating with prednisone and ibuprofen and avoiding taking them together. Patient verbalized understanding of all information is agreeable to the plan, he is ambulatory and stable for discharge home, all questions answered. ED return precautions discussed. Discharge Plan Departure Patient Disposition: Home Clinical Impression: Sacroiliac joint pain Instructions: DI Sacroiliac Joint Dysfunction Activity Restrictions/Additional Instructions: Dear Mr. Arroyo, Thank you for coming to the emergency department. Today we treated you with an injection of anti-inflammatory pain medication, an oral steroid, and a topical numbing patch. I have prescribed additional oral steroids, numbing patches, and strong opiate pain medication and sent them to your pharmacy. Please rest, use heat therapy on your area of pain, continue using ibuprofen and Tylenol for pain in addition to the prescriptions. Please only use the prescribed hydrocodone at night as this can make you drowsy. Please call to schedule an appointment with your primary care doctor who can refer you to physical therapy and Orthopedics as this will also help your pain. Return to the emergency department immediately if you develop severe weakness, numbness, inability to walk, inability to use the bathroom, fevers or any other concerns. Please take Ibuprofen (Motrin/Advil) or Acetaminophen (Tylenol) for pain. These are available over the counter. You may take Ibuprofen 600 mg every 8 hours with food for pain. You may also take Acetaminophen 650 mg every 4-6 hours for pain. Do not exceed 3000 mg of Tylenol a day as this can cause liver damage. Do not drink alcohol with either of these medications. You have been prescribed a short course of narcotic medications. These are potentially dangerous and addictive medications that should be used carefully. While on these medications you cannot drive or operate heavy machinery. Additionally, you cannot sign legal documents or perform any duties such as this. 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 Please understand that we cannot provide further refills of narcotics or controlled substances through the ED and your pain management will need to be through your Primary Care Provider Please follow up with your primary care doctor within the next 2-3 days for ER follow-up. (If you do not have a PCP you can call [phone]. ?to schedule an appointment with an [facility] Primary Care Provider) IF YOU DEVELOP ANY NEW OR WORSENING SYMPTOMS, RETURN TO THE ER! Please read the attached instructions, they highlight more specific treatments and interventions for you at home. Thank you for letting me participate in your care, Clarissa Palacios PA-C Prescriptions: New prednisone 20 mg tablet 40 mg PO DAILY 5 Days Qty: 10 0RF Rx Instructions: Take with breakfast. hydrocodone-acetaminophen 5-325 mg tablet 1 tab PO BEDTIME PRN (Reason: pain (scale score 7-10)) Qty: 5 0RF lidocaine [Lidoderm] 5 % adhesive patch,medicated 1 patch topical DAILY Qty: 30 0RF Rx Instructions: leave on most painful area for up to 12 hrs No Action acetaminophen [Tylenol Extra Strength] 500 mg tablet 500 mg PO Q6H PRN (Reason: Pain (Scale Score 4-6)) atorvastatin 20 mg tablet 20 mg PO BEDTIME amlodipine 2.5 mg tablet 2.5 mg PO DAILY Qty: 30 2RF dorzolamide 2 % drops 1 drp EYE-BOTH BID cholecalciferol (vitamin D3) 25 mcg (1,000 unit) tablet PO loperamide 2 mg capsule 2 mg PO DAILY Disabled Parking Permit Qty: 1 0RF albuterol sulfate 90 mcg/actuation HFA aerosol inhaler 2 puff inhalation Q6H PRN (Reason: shortness of breath or wheezing) Qty: 6.7 5RF latanoprost 0.005 % drops EYE-BOTH DAILY Patient Comments: 11/03/23: using x 45yrs multivitamin [Daily Multi-Vitamin] Tablet 1 tab PO DAILY psyllium Powder 1 tbsp PO DAILY Rx Instructions: mix into at least 8 oz of water or juice before administering Referrals: Lance Hughes MD [Primary Care Provider, Family Practice] Stand Alone Forms: Patient Portal/API ED Sign-out <Catie Marinelli, - Last Filed: 01/18/25 07:46> Cosign ED Attending Ryanature Attestation: I was available for consultation.
[2025-01-17] MEDS: KETOROLAC 30 MG/ML VIAL IM (12:54)
[2025-01-17] MEDS: LIDOCAINE 5% PATCH 1 EACH TOP (12:54)
[2025-01-17 13:10] VITALS: BP 145/78; PULSE 66; RESP 19; TEMP 37; O2SAT 100
== END 2025-01-17 13:11 | disposition home or self-care (01) ==
PROVIDERS: Emergency Provider Physician Assistant; Family Provider Family Medicine; PCP Family Medicine
DX: M53.3 Sacrococcygeal disorders, not elsewhere classified (principal)
CPT/HCPCS: 96372; 99283; J1885

== ENCOUNTER 2025-02-02 15:08 | Emergency (ER) | payer OTHER, SELFPAY ==
[2025-02-02] VITALS (8 sets, daily range): BP systolic 156–195; BP diastolic 78–100; PULSE 75–87; RESP 16–20; O2SAT 93–98; BMI 23.3
--- NOTE | 2025-02-02 19:20 | ED.BACK ---
HPI - Back Pain/Injury General Chief Complaint: Back Pain/Injury Stated Complaint: pinched nerve, L hip pn Time Seen by Provider: 02/02/25 18:45 Source: patient History of Present Illness HPI Narrative: 74-year-old male with history of low back and left hip problems, bent over today, felt popping sensation, increasing pain to the low left back, also in the left hip, radiating down his left leg. No direct blow. No incontinence to urine or stool. No weakness to his leg. Denies previous back procedures/injections. Denies loss of bowel/bladder function. Related Data Home Medications ?Medication ?Instructions ?Recorded ?Confirmed acetaminophen 500 mg tablet 500 mg PO Q6H PRN Pain (Scale 10/02/17 01/03/24 (Tylenol Extra Strength) Score 4-6) multivitamin (Daily Multi-Vitamin 1 tab PO DAILY 11/13/19 01/03/24 tablet) psyllium 1 tbsp PO DAILY 11/13/19 01/03/24 atorvastatin 20 mg tablet 20 mg PO BEDTIME 06/08/23 01/03/24 cholecalciferol (vitamin D3) 25 PO 10/20/23 01/03/24 mcg (1,000 unit) tablet dorzolamide 2 % eye drops 1 drp EYE-BOTH BID 10/20/23 01/03/24 loperamide 2 mg capsule 2 mg PO DAILY 10/20/23 01/03/24 latanoprost 0.005 % eye drops drp EYE-BOTH DAILY 11/03/23 01/03/24 Previous Rx's ?Medication ?Instructions ?Recorded Disabled Parking Permit ea ##1 09/29/16 albuterol sulfate 90 mcg/actuation 2 puff inhalation Q6H PRN 06/12/23 aerosol inhaler shortness of breath or wheezing #6.7 grams amlodipine 2.5 mg tablet 2.5 mg PO DAILY #30 tabs 07/06/23 hydrocodone 5 mg-acetaminophen 325 1 tab PO BEDTIME PRN pain (scale 01/17/25 mg tablet score 7-10) #5 tabs lidocaine 5 % topical patch 1 patch topical DAILY #30 ea 01/17/25 (Lidoderm) ciprofloxacin HCl 500 mg tablet 500 mg PO BID #20 tabs 02/02/25 (Cipro) methocarbamol 500 mg tablet 500 mg PO TID 7 days #21 tabs 02/02/25 naproxen 500 mg tablet 500 mg PO BID 7 days #14 tabs 02/02/25 Allergies Allergy/AdvReac Type Severity Reaction Status Date / Time No Known Drug Allergies Allergy Verified 01/17/25 10:43 Patient History Medical History Injury of tendon of thumb Arthritis Left foot pain History of renal calculi (12/11/14) Social History household members: none Smoking Status: Never smoker alcohol intake: current Smoking Status: Never smoker alcohol intake frequency: a few times a week Exam Narrative Exam Narrative: GENERAL: Well-developed patient, in mild distress. HEAD: Atraumatic. Normocephalic. EYES: Pupils equal round and reactive. Extraocular motions intact. No scleral icterus. No injection or drainage. ENT: Nose without bleeding, purulent drainage. Throat without erythema, tonsillar hypertrophy or exudate. Airway patent. NECK: Trachea midline. Non tender CARDIOVASCULAR: Regular rate and rhythm without murmurs, gallops, or rubs. RESPIRATORY: Clear to auscultation. Breath sounds equal bilaterally. No wheezes, rales, or rhonchi. GASTROINTESTINAL: Abdomen soft, non-tender, nondistended. EXTREMITIES: No edema or joint tenderness. BACK: Nontender without deformity or crepitance. No flank tenderness. NEURO: AOx3. Motor functions grossly nonfocal. SKIN: No rash or erythema of visible areas Initial Vital Signs Initial Vital Signs: Vital Signs Pulse Rate 80 02/02/25 15:22 Respiratory Rate 16 02/02/25 15:22 Blood Pressure 169/78 H 02/02/25 15:22 Pulse Oximetry 98 02/02/25 15:22 Oxygen Delivery Method Room Air 02/02/25 15:22 Course Orders Ordered: Discontinued Medications Ciprofloxacin (Ciprofloxacin 250 Mg Tablet) 500 mg PO NOW ONE Stop: 02/02/25 20:58 Last Admin: 02/02/25 21:04 Dose: 500 mg Documented By: CONSUELO Dexamethasone (Dexamethasone 10 Mg/Ml Vial) 10 mg IM NOW ONE Stop: 02/02/25 19:23 Last Admin: 02/02/25 19:46 Dose: Not Given Documented By: TODD Hydromorphone HCl (Hydromorphone 1 Mg/Ml Syringe) 1 mg IM NOW ONE Stop: 02/02/25 19:26 Last Admin: 02/02/25 19:47 Dose: Not Given Documented By: TODD Hydromorphone HCl (Hydromorphone Hcl 0.5 Mg/0.5 Ml Syringe) 0.5 mg IV NOW ONE Stop: 02/02/25 19:28 Last Admin: 02/02/25 20:02 Dose: 0.5 mg Documented By: TODD Ketorolac Tromethamine (Ketorolac 30 Mg/Ml Vial) 15 mg IV NOW ONE Stop: 02/02/25 19:28 Last Admin: 02/02/25 20:01 Dose: 15 mg Documented By: TODD Methocarbamol (Methocarbamol 500 Mg Tablet) 500 mg PO NOW ONE Stop: 02/02/25 19:23 Last Admin: 02/02/25 19:46 Dose: Not Given Documented By: TODD Methocarbamol (Methocarbamol 500 Mg Tablet) 500 mg PO NOW ONE Stop: 02/02/25 19:28 Last Admin: 02/02/25 21:04 Dose: 500 mg Documented By: CONSUELO Ondansetron HCl (Ondansetron 4 Mg/2 Ml Inj) 4 mg IV NOW ONE Stop: 02/02/25 19:29 Last Admin: 02/02/25 20:01 Dose: 4 mg Documented By: TODD Vital Signs Vital signs: Vital Signs - 8 hr 02/02/25 23:53 Pulse Rate 84 Respiratory Rate 17 Blood Pressure 156/83 H Pulse Oximetry 95 Oxygen Delivery Method Room Air MDM - Back Pain/Injury Imaging Data CT scan - abdomen/pelvis: Radiologist's Impression: [place] [address] CT Scan Report Signed Patient: Agapito Arroyo MR#: [id number] : 1950 Acct:[id number] Age/Sex: 74 / M Date of Service: 02/02/25 Loc: ED Accession Number: [id number] Procedure: CT abdomen pelvis wo con Ordering Provider: Lacho Slaes MD PROCEDURE: CT ABDOMEN PELVIS WO CON INDICATIONS: L hip back pain TECHNIQUE: CT of the abdomen and pelvis was obtained without intravenous contrast. Coronal and sagittal reformats were performed. For radiation dose reduction, the following was used: automated exposure control, adjustment of mA and/or kV according to patient size. COMPARISON: None. FINDINGS: Image quality: Diagnostic. Lower Chest: No significant findings. ABDOMEN: Liver: No contour-deforming mass. Gallbladder: No radiopaque gallstones or wall thickening. Biliary ducts: No biliary dilation. Pancreas: No ductal dilation. Spleen: Size is within normal limits. Adrenal Glands: No adrenal nodules. Kidneys and Ureters: No hydronephrosis. No contour-deforming mass. Nonobstructive stones in both kidneys measure up to 4 mm in the left lateral interpolar kidney (2/46) and up to 2 mm in the medial left upper pole (2/52). No hydronephrosis. No contour deforming mass. Stomach and Bowel: Normal colonic caliber, without significant wall thickening. Normal appendix. Peritoneum: No abnormal intraperitoneal fluid. No free air. Ventral Wall: No significant hernia. Abdominal Nodes: No retroperitoneal or mesenteric adenopathy by size criteria. Vessels: Aorta and inferior vena cava are normal in size. PELVIS: Pelvic Organs: Mild fat stranding adjacent to the bilateral seminal vesicles and prostate. No collection. Bladder: Unremarkable. Pelvic Nodes: No enlarged lymph nodes. Miscellaneous: No inguinal hernias are seen. Bones: No aggressive osseous abnormality. Moderately degenerated disc at L5-S1. IMPRESSION: 1. Prostatitis with inflammation of the bilateral seminal vesicles, consider correlation with sexual transmitted disease panel. No abscess. 2. Bilateral nonobstructive intrarenal nephrolithiasis. Dictated by: Yuri Francisco M.D. on 02/02/2025 at 20:01 Approved by: Yuri Francisco M.D. on 02/02/2025 at 20:07 [facility] Narrative Medical decision making narrative: 74-year-old male had complaint of left-sided low back pain radiation to the buttock and also to the groin down front and back of leg. Uncomfortable appearing. IV Dilaudid/Zofran, Toradol. CT abdomen and pelvis imaging. CT abdomen and pelvis shows arthritic changes to the spine, no acute bony fractures. Incidentally also noted acute prostatitis changes. See radiology report. Oral ciprofloxacin, oral methocarbamol. Symptoms further improved. Patient requested to go home. Prescription sent for further antibiotic and muscle relaxants to his requested pharmacy. Discharged home with family. Follow up with PCP this mid week advised. Return precautions discussed. Discharge Plan Departure Patient Disposition: Home Clinical Impression: Back strain, Acute prostatitis Activity Restrictions/Additional Instructions: Bending twisting motion with left low back and left hip and left groin discomfort. No direct blow recalled. Some pain to the left leg. CT abdomen and pelvis showed no lumbar fractures of the spine, no hip pathology, no gluteal area pathology. Did incidentally also noticed acute prostatitis changes of the prostate gland. Unclear if this is related to any of your groin like discomfort. Trial of antibiotics for prostatitis, 1st dose of ciprofloxacin antibiotic given, with further doses sent to your pharmacy. Pain medications and muscle relaxants given, improved symptoms. Prescription for methocarbamol muscle relaxant and naproxen anti-inflammatory medication sent to your pharmacy as well. Recheck symptoms with your regular doctor later this week. Return to this/nearest emergency department for any change worsening symptoms or any concerns prior. Prescriptions: New ciprofloxacin HCl [Cipro] 500 mg tablet 500 mg PO BID Qty: 20 0RF methocarbamol 500 mg tablet 500 mg PO TID 7 Days Qty: 21 0RF naproxen 500 mg tablet 500 mg PO BID 7 Days Qty: 14 0RF No Action acetaminophen [Tylenol Extra Strength] 500 mg tablet 500 mg PO Q6H PRN (Reason: Pain (Scale Score 4-6)) atorvastatin 20 mg tablet 20 mg PO BEDTIME amlodipine 2.5 mg tablet 2.5 mg PO DAILY Qty: 30 2RF dorzolamide 2 % drops 1 drp EYE-BOTH BID cholecalciferol (vitamin D3) 25 mcg (1,000 unit) tablet PO loperamide 2 mg capsule 2 mg PO DAILY Disabled Parking Permit Qty: 1 0RF albuterol sulfate 90 mcg/actuation HFA aerosol inhaler 2 puff inhalation Q6H PRN (Reason: shortness of breath or wheezing) Qty: 6.7 5RF latanoprost 0.005 % drops EYE-BOTH DAILY Patient Comments: 11/03/23: using x 45yrs multivitamin [Daily Multi-Vitamin] Tablet 1 tab PO DAILY psyllium Powder 1 tbsp PO DAILY Rx Instructions: mix into at least 8 oz of water or juice before administering hydrocodone-acetaminophen 5-325 mg tablet 1 tab PO BEDTIME PRN (Reason: pain (scale score 7-10)) Qty: 5 0RF lidocaine [Lidoderm] 5 % adhesive patch,medicated 1 patch topical DAILY Qty: 30 0RF Rx Instructions: leave on most painful area for up to 12 hrs Referrals: Lance Hughes MD [Primary Care Provider, Family Practice] Stand Alone Forms: Patient Portal/API
--- NOTE | 2025-02-02 19:25 | DI.CT.S_ITS ---
PROCEDURE: CT ABDOMEN PELVIS WO CON INDICATIONS: L hip back pain TECHNIQUE: CT of the abdomen and pelvis was obtained without intravenous contrast. Coronal and sagittal reformats were performed. For radiation dose reduction, the following was used: automated exposure control, adjustment of mA and/or kV according to patient size. COMPARISON: None. FINDINGS: Image quality: Diagnostic. Lower Chest: No significant findings. ABDOMEN: Liver: No contour-deforming mass. Gallbladder: No radiopaque gallstones or wall thickening. Biliary ducts: No biliary dilation. Pancreas: No ductal dilation. Spleen: Size is within normal limits. Adrenal Glands: No adrenal nodules. Kidneys and Ureters: No hydronephrosis. No contour-deforming mass. Nonobstructive stones in both kidneys measure up to 4 mm in the left lateral interpolar kidney (2/46) and up to 2 mm in the medial left upper pole (2/52). No hydronephrosis. No contour deforming mass. Stomach and Bowel: Normal colonic caliber, without significant wall thickening. Normal appendix. Peritoneum: No abnormal intraperitoneal fluid. No free air. Ventral Wall: No significant hernia. Abdominal Nodes: No retroperitoneal or mesenteric adenopathy by size criteria. Vessels: Aorta and inferior vena cava are normal in size. PELVIS: Pelvic Organs: Mild fat stranding adjacent to the bilateral seminal vesicles and prostate. No collection. Bladder: Unremarkable. Pelvic Nodes: No enlarged lymph nodes. Miscellaneous: No inguinal hernias are seen. Bones: No aggressive osseous abnormality. Moderately degenerated disc at L5-S1. IMPRESSION: 1. Prostatitis with inflammation of the bilateral seminal vesicles, consider correlation with sexual transmitted disease panel. No abscess. 2. Bilateral nonobstructive intrarenal nephrolithiasis. Dictated by: Yuri Francisco M.D. on 02/02/2025 at 20:01 Approved by: Yuri Francisco M.D. on 02/02/2025 at 20:07
[2025-02-02] MEDS: KETOROLAC 30 MG/ML VIAL 15 MG IV (20:01)
[2025-02-02] MEDS: ONDANSETRON 4 MG/2 ML INJ IV (20:01)
[2025-02-02] MEDS: CIPROFLOXACIN 250 MG TABLET 500 MG PO (21:04)
== END 2025-02-02 23:54 | disposition home or self-care (01) ==
PROVIDERS: Emergency Provider Emergency Medicine; Family Provider Family Medicine; PCP Family Medicine
DX: S29.012A Strain of muscle and tendon of back wall of thorax, initial encounter (principal); N41.0 Acute prostatitis; M25.552 Pain in left hip
CPT/HCPCS: 74176; 96374; 96375; 99284; J1171; J1885; J2405

== ENCOUNTER 2025-04-17 11:40 | Outpatient (RCR) | payer OTHER, SELFPAY ==
--- NOTE | 2025-04-17 13:00 | PT.OPPOC ---
Physical, Occupational & Speech Therapy At Current Diagnoses Radiculopathy, lumbar region (04/17/25) Visit Care Team Role Provider Type Alek Gillis MD Attending Provider Non-Staff Family Provider Primary Care Provider Referring Provider Specialty: Family Practice Address: [address] [place] [address], [id number] Email: Plan Of Care PT OP: Lower Back/Lower Extremity Start: 04/17/25 17:45 Freq: Status: Active Protocol: Document 04/17/25 12:15 DCW (Rec: 04/17/25 17:56 DCW [id number]) Out-Patient Physical Therapy Visit Information Visit Information Visit Type Initial Evaluation Visit Start Time 12:15 Visit Stop Time 13:00 Visit Number 1 Number of HORSE [employer]ING GUIDE Visits 0 Current Condition History of Current Condition Onset Date 3.5 month history History of Current Pt is a 75 year old male presenting to Physical Therapy Condition after injuring his back 3.5 months ago. Pt reports he was vacuuming, was bent over, and got sudden pain in his back/left posterior hip, and ended up presenting to the ED at . He was sore for a few days, but then felt quite a bit better. Approximately one week later, he was working on his truck, and had a similar but much worse pain in his left cheek, and once again presented to the ED. Pt was provided with an injection, a course of Prednisone, and eventually obtained a CT and MRI of his spine, which noted mild disc bulges on all lumbar levels. Pt felt better once again about one week later, and for the past three months has experienced no pain, is back to his usual activities with no limitations. Since it took two months to get his referral and one month to get on the schedule for PT, he still wanted to come in and be evaluated just in case. OP-PT Subjective Patient Comments Patient Comments There's basically been nothing for the last three months. Patient Reported Improving Progress Therapeutic Exercises Sitting Exercises Piriformis Sitting Exercise Seated Figure-4 Name Side bilateral Physical Therapy Assessment Assessment Summary Assessment Pt presents entirely asymptomatic, no longer experiencing any pain or limitations from initial injury 3.5 months ago. Per pt's reports of pain in his posterior left hip, may indicate potential piriformis strain. Pt provided with exercise to help stretch if symptoms recur. Due to no functional limitations and no symptoms at this time, further skilled outpatient PT is not indicated at this time. Physical Therapy Plan Frequency and Duration Frequency of 1x/Week Treatment Plan of Care Start 04/17/25 Date Plan of Care End 04/18/25 Date Discharge Physical Therapy Discharge Comments No further therapy indicated Next Visit Focus/Plan Next Note Type Discharge Summary Plan of Care Dates Plan of Care Start Date 04/17/25 Plan of Care End Date 04/18/25 Electronically Signed by: Jan Vasques, PT 04/18/25 0853 If you are in agreement with this Plan of Care, please return a signed and dated copy. I have reviewed this Plan of Care and certify that the skilled therapy services above are required to meet the patient?s needs. Physician Signature Date Printed Name and Credentials Clinical Instructor Signature Printed Name and Credentials
== END 2025-04-29 10:02 | disposition home or self-care (01) ==
LOC: PHYS 11:40
PROVIDERS: Family Provider Family Medicine; PCP Family Medicine; Referring Provider Family Medicine; Visit Provider Family Medicine
DX: M54.16 Radiculopathy, lumbar region (principal)
CPT/HCPCS: 97110; 97161

== ENCOUNTER → 2025-04-23 12:30 | Outpatient (CLI) | payer OTHER, SELFPAY ==
--- NOTE | 2025-04-23 12:32 | DI.CT.S_ITS ---
PROCEDURE: CT CHEST WO CON INDICATIONS: abnormal chest ct TECHNIQUE: Noncontrast 5 mm thick sections acquired from the pulmonary apices to the posterior costophrenic angles. 1 mm lung window, 5 mm thick coronal and sagittal and 7 mm axial MIP reformats were then acquired. For radiation dose reduction, the following was used: automated exposure control, adjustment of mA and/or kV according to patient size. COMPARISON: [facility], CT, CT CHEST WO CON, 03/12/2024, 12:15. FINDINGS: Image quality: Diagnostic. Lower Neck: No enlarged lymph nodes. Thyroid: No thyroid nodules which require sonographic follow up, per consensus guidelines. Axillae: No enlarged lymph nodes. Chest Wall: Unremarkable. Bones: Unremarkable. Lungs and Pleura: No pneumothorax or pleural effusions. No consolidation or suspicious nodules. Two sub 5 mm nodules smaller on the right than the left are again seen at the lower lobes currently on series 3 image 223 on the right and 257 on the left Heart: Heart size is normal. No pericardial effusion. Thoracic Vessels: The aorta and pulmonary arteries demonstrate normal size. Mediastinum and Samara: No enlarged lymph nodes. Esophagus: No wall thickening. No hiatal hernia. Upper Abdomen: Visualized upper abdomen solid organs and bowel loops appear normal. IMPRESSION: Stable sub 5 mm pulmonary nodules present, with reference to the study from 2023. No suspicious nodule has developed. Dictated by: Jose Alberts M.D. on 04/23/2025 at 16:25 Approved by: Jose Alberts M.D. on 04/23/2025 at 16:30
== END ==
LOC: CT 12:31
PROVIDERS: Family Provider Family Medicine; PCP Family Medicine; Referring Provider Internal Medicine Pulmonary Disease; Visit Provider Internal Medicine Pulmonary Disease
DX: J47.9 Bronchiectasis, uncomplicated (principal); J44.9 Chronic obstructive pulmonary disease, unspecified; R91.8 Other nonspecific abnormal finding of lung field
CPT/HCPCS: 71250